=== PATIENT | male | born 1935 | race African-American/Black ===

== ENCOUNTER 2018-10-21 18:31 | Emergency (ER) | payer MEDICARE, OTHER ==
[~2018-10-21] VITALS: Ht 185.4 cm; Wt 82.1 kg
[~2018-10-21 18:31] MED LIST: ASPI81CH49 PO; CARB0.5D28 OP; FENO50TA PO; GLIP-116 PO; HYDR25TA4 PO; LISI40TA PO; NIFEDIPINE PO; PRAVASTATIN PO; TERA10CA36 PO; TRAV0.007 OP; [UNRECOGNIZED DRUG - CODE] PO
[2018-10-21] MEDS ORDERED: IBUPROFEN 400 MG TAB PO ONE (21:15)
[2018-10-21] MEDS ORDERED: HYDROcodone-ACET 7.5/325MG TAB PO ONE (21:15)
[2018-10-21 22:20] VITALS: BP 151/79
== END 2018-10-21 22:27 | disposition home or self-care (01) ==
LOC: ER 18:37
DX: S16.1XXA Strain of muscle, fascia and tendon at neck level, initial encounter (principal); S40.011A Contusion of right shoulder, initial encounter; S09.90XA Unspecified injury of head, initial encounter; I10 Essential (primary) hypertension; E11.9 Type 2 diabetes mellitus without complications; W19.XXXA Unspecified fall, initial encounter; Y93.89 Activity, other specified; Y99.8 Other external cause status; Y92.89 Other specified places as the place of occurrence of the external cause
CPT/HCPCS: 70450; 72125; 73000; 73030; 93005; 99284; L0120

== ENCOUNTER 2019-06-23 08:03 | Inpatient (IN) | payer MEDICARE, OTHER ==
[~2019-06-23] VITALS: Ht 185.4 cm; Wt 87.4 kg
[~2019-06-23 08:03] MED LIST changes: -GLIP-116 PO; +GLIP10TA9 PO; +[UNRECOGNIZED DRUG - CODE] PO; -[UNRECOGNIZED DRUG - CODE] PO
[2019-06-23] MEDS ORDERED: ASPirin 81 mg TAB PO ONE (08:15)
[2019-06-23] MEDS ORDERED: FUROSEMIDE 40 MG/4 ML VIAL IV ONE (08:15)
[2019-06-23 08:39] LABS: Basophils # (auto) 0 10 ^3/uL (0-0.2); Basophils % (auto) 0.3 % (0.0-2.0); Eosinophils # (auto) 0.1 10 ^3/uL (0-0.8); Eosinophils % (auto) 1.3 % (0.0-7.0); Hematocrit 27.8 % (41.0-53.0); Hemoglobin 9.3 g/dL (13.5-17.5); Lymphocytes # (auto) 0.7 10 ^3/uL (0.4-5.4); Lymphocytes % (auto) 11.2 % (10.0-50.0); Mean Corpuscular Hemoglobin 33.9 pg (28.0-32.0); Mean Corpuscular Hgb Conc. 33.5 g/dL (32.0-36.0); Mean Corpuscular Volume 101.4 fL (80.0-100.0); Monocytes # (auto) 0.5 10 ^3/uL (0-1.3); Monocytes % (auto) 8.6 % (0.0-12.0); Neutrophils # (auto) 4.8 10 ^3/uL (1.6-8.6); Neutrophils % (auto) 78.6 % (37.0-80.0); Nucleated Red Blood Cells % 0.1 %; Platelet Count (auto) 95 10^3/uL (140-450); Red Blood Cells 2.74 10^6/uL (4.5-5.90); Red Cell Distribution Width 15.4 % (11.8-14.3); White Blood Cell 6.1 10^3/uL (4.4-10.8)
[2019-06-23 08:57] LABS: Albumin 3.3 g/dL (3.4-5.0); Calcium 8.4 mg/dL (8.5-10.1); Magnesium 2.6 mg/dL (1.6-2.6); Potassium 4.6 mmol/L (3.5-5.1)
[2019-06-23 09:05] LABS: BUN/Creatinine Ratio 15.2; Bilirubin, Total 0.7 mg/dL (0.2-1.0); Total Protein 6.9 g/dL (6.4-8.2)
[2019-06-23] MEDS ORDERED: ALBUTEROL SULF 2.5 MG/0.5ML(0.5%) NEB SOLN HHN ONE (09:45)
[2019-06-23] MEDS ORDERED: methylPREDNISolone SOD SUCC 125 MG/2 ML VL IV ONE (09:45)
[2019-06-23] MEDS ORDERED: IPRATROPIUM BROM 0.5 MG/2.5ML INH SOL HHN ONE (09:45)
[2019-06-23] MEDS ORDERED: MORPHINE SULF INJ 2 MG/ML SYRINGE 1ML IV PRN ×2 (10:15)
[2019-06-23] MEDS ORDERED: traMADol HCL 50 MG TAB PO PRN (10:15)
[2019-06-23] MEDS ORDERED: DEXTROSE (50%) 50ML SYRG IV PRN (10:15)
[2019-06-23] MEDS ORDERED: TEMAZEPAM 15 MG CAP PO PRN (10:15)
[2019-06-23] MEDS ORDERED: ONDANSETRON HCL 4 MG/2 ML VIAL IV PRN (10:15)
[2019-06-23] MEDS ORDERED: NITROGLYCERIN 0.4 MG SL TAB SL PRN (10:15)
[2019-06-23] MEDS ORDERED: ACETAMINOPHEN 500 MG TAB PO PRN (10:15)
[2019-06-23 10:20] LABS: Urine Bacteria NONE SEEN /hpf (None Seen); Urine Blood Negative /uL (Negative); Urine Specific Gravity 1.007 (1.001-1.035); Urine WBC <1 /hpf (0 - 3)
[2019-06-23 10:30] VITALS: BP 125/72
[2019-06-23] MEDS ORDERED: FUROSEMIDE 40 MG/4 ML VIAL IV SCH (10:45)
--- NOTE | 2019-06-23 11:30 | NUR ---
Telemetry admit from [facility] admitted to Telemetry unit after SBAR received. Patient oriented to MYKEL CORRAL, primary RN, unit, room, bed, and unit policies regarding patient care and visiting hours. Patient now on continuous telemetry monitoring, tele box #18 and telemetry reading on arrival to unit is SINUS RHYTHM. Patient placed on bedside oxygen at 2lpm via nasal cannula, weighed by bedscale and encouraged to call if they need something. All questions and concerns addressed, patient verbalized understanding.
[2019-06-23] MEDS: ACCU-CHEK COMFORT CURVE STRIP VI SCH ×3 (12:03→21:58)
--- NOTE | 2019-06-23 12:04 | NUR ---
MRSA AND FLU SWABS DONE. SENT TO LAB.
[2019-06-23 12:22] VITALS: BP 120/69
[2019-06-23] MEDS: InsuLIN REG 1unit/0.01ml Soln (100units/ml) SC SCH ×3 (12:44→22:02)
[2019-06-23] MEDS: IPRATROPIUM BROM 0.5 MG/2.5ML INH SOL NEB SCH ×2 (12:54→18:09)
--- NOTE | 2019-06-23 16:00 | NUR ---
RECEIVED A FAX FROM DR. HERNANDEZ'S OFFICE, PLACED IN PATIENT'S CHART.
[2019-06-23 16:32] VITALS: BP 124/62
[2019-06-23] MEDS: FUROSEMIDE 40 MG/4 ML VIAL IV SCH (17:38)
--- NOTE | 2019-06-23 17:56 | NUR ---
POM PATIENT SAID THAT HIS NEIGHBOR WILL BRING THE LIST OF HIS HOME MEDS, WILL ENDORSE TO NIGHT NURSE.
--- NOTE | 2019-06-23 18:08 | NUR ---
MR [place] [facility] [place]ICAL REC[place]. FAX #: [phone]. TRAFFIC SIGNAL TECHNICIAN SAID THAT MEDICAL RECORDS IS CLOSED.
[2019-06-23] MEDS: ALBUTEROL SULF 2.5 MG/0.5ML(0.5%) NEB SOLN NEB PRN (18:09)
--- NOTE | 2019-06-23 18:30 | NUR ---
[place] [facility] [place], PLACED IN CHART. WILL ENDORSE TO NIGHT NURSE.
--- NOTE | 2019-06-23 19:50 | NUR ---
Opening Shift Note Assumed care of patient, awake and alert. No S/S of distress/SOB or pain. Friend olga at bedside. Instructed on POC and to call for assist PRN, will continue to monitor for changes Q1hr and PRN. bed in low position and call light within reach.
[2019-06-23 20:00] VITALS: BP 144/74
[2019-06-23 22:00] VITALS: BP 140/71
[2019-06-23] MEDS: ATORVASTATIN 20 MG TAB PO SCH (22:02)
[2019-06-23] MEDS: CARVEDILOL 3.125 MG TAB PO SCH (22:02)
--- NOTE | 2019-06-23 22:11 | NUR ---
MD sofia rounding on patient and explaining POC patient verbalized understanding. new orders received orders read back and verified by MD sofia.
[2019-06-23] MEDS ORDERED: CARB0.5D36 EACHEYE (23:26)
[2019-06-23] MEDS ORDERED: BRIM0.2S17 OP (23:26)
[2019-06-23] MEDS ORDERED: AMLO10CA33 PO (23:26)
[2019-06-23] MEDS ORDERED: FURO40TA4 PO (23:26)
[2019-06-23] MEDS ORDERED: OMEG1205 PO (23:26)
[2019-06-23] MEDS ORDERED: CARV3.1240 PO (23:26)
[2019-06-23] MEDS ORDERED: ATOR20TA50 PO (23:26)
[2019-06-23] MEDS ORDERED: TIMO0.5S67 EACHEYE (23:26)
[2019-06-23] MEDS ORDERED: LATA0.0019 EACHEYE (23:26)
[2019-06-23] MEDS ORDERED: FINA5TAB4 PO (23:26)
[2019-06-23] MEDS ORDERED: ERGO1CAP23 PO (23:26)
[2019-06-23] MEDS ORDERED: MULT-8 PO (23:26)
[2019-06-23] MEDS ORDERED: HYDR-4296 PO (23:26)
[2019-06-23] MEDS ORDERED: CALC0.25 PO (23:26)
--- NOTE | 2019-06-23 23:29 | NUR ---
MEDICATION REC UPDATED. INFORMED PATIENT OF HOSPITAL POLICY AND MEDICATION NEED TO BE TAKEN DOWN TO PHARMACY. PATIENT STATED " I WILL TELL MY NEIGHBOR TO SMOKING PIPE MAKER MY MEDICATION IN THE MORNING, DO NOT TAKE THEM" . PATIENT VERBALIZED THAT HE WILL NOT TAKE ANY HOME MEDICATIONS WHILE AT THE HOSPITAL. MEDICATIONS AT BEDSIDE IN CLOSET
[2019-06-24] MEDS: IPRATROPIUM BROM 0.5 MG/2.5ML INH SOL NEB SCH ×4 (00:09→18:48)
[2019-06-24] MEDS: ALBUTEROL SULF 2.5 MG/0.5ML(0.5%) NEB SOLN NEB PRN ×3 (00:10→11:22)
[2019-06-24] MEDS: FUROSEMIDE 40 MG/4 ML VIAL IV SCH ×2 (05:26→17:52)
[2019-06-24 05:44] LABS: Basophils # (auto) 0 10 ^3/uL (0-0.2); Basophils % (auto) 0.1 % (0.0-2.0); Eosinophils # (auto) 0 10 ^3/uL (0-0.8); Hematocrit 24.6 % (41.0-53.0); Hemoglobin 8.6 g/dL (13.5-17.5); Lymphocytes # (auto) 0.3 10 ^3/uL (0.4-5.4); Lymphocytes % (auto) 4.9 % (10.0-50.0); Mean Corpuscular Hemoglobin 34.6 pg (28.0-32.0); Mean Corpuscular Hgb Conc. 34.9 g/dL (32.0-36.0); Mean Corpuscular Volume 99.1 fL (80.0-100.0); Monocytes # (auto) 0.2 10 ^3/uL (0-1.3); Monocytes % (auto) 4.1 % (0.0-12.0); Neutrophils # (auto) 4.6 10 ^3/uL (1.6-8.6); Neutrophils % (auto) 90.9 % (37.0-80.0); Platelet Count (auto) 87 10^3/uL (140-450); Red Blood Cells 2.48 10^6/uL (4.5-5.90); Red Cell Distribution Width 14.6 % (11.8-14.3); White Blood Cell 5.1 10^3/uL (4.4-10.8)
[2019-06-24 05:58] LABS: Albumin 2.8 g/dL (3.4-5.0); Calcium 8.4 mg/dL (8.5-10.1); Potassium 4.6 mmol/L (3.5-5.1)
[2019-06-24 06:02] LABS: Bilirubin, Total 0.5 mg/dL (0.2-1.0); Total Protein 6.2 g/dL (6.4-8.2)
[2019-06-24 06:15] LABS: BUN/Creatinine Ratio 16.9
[2019-06-24 06:17] VITALS: BP 123/66
--- NOTE | 2019-06-24 06:21 | NUR ---
spoke with md zimmerman sbar report given and reported critical bun 83. also notified of nephrology consult pending for CKD. no new orders received orders read back and verified by md zimmerman.
[2019-06-24] MEDS: InsuLIN REG 1unit/0.01ml Soln (100units/ml) SC SCH ×4 (06:29→21:57)
[2019-06-24] MEDS: ACCU-CHEK COMFORT CURVE STRIP VI SCH ×4 (06:29→21:56)
--- NOTE | 2019-06-24 06:37 | NUR ---
patient rounds patient is in bed sleeping bilateral chest rise and fall rr 15. shows no signs of distress, sob or pain
--- NOTE | 2019-06-24 07:21 | NUR ---
report given to dayshift rn pty denies sob distress or pain
--- NOTE | 2019-06-24 07:45 | NUR ---
Patient in bed, awake, oriented x4, on O2 at 2 LPM. No acute distress noted. Patient stated he can get up and go to the bathroom with no assist. Urinal at bedside with 500 ml of clear, yellowish urine noted.
--- NOTE | 2019-06-24 07:50 | NUR ---
About 500 ml of clear, yellowish urine emptied from the urinal.
[2019-06-24 09:00] VITALS: BP 124/65
--- NOTE | 2019-06-24 09:50 | NUR ---
Patient stated that Dr. Teran (for Nephrology) came over and told him that he cannot have the angiogram on Wednesday because of his kidneys. Will clarify with Dr. Teran and Dr. Quiles (for Cardiology).
[2019-06-24] MEDS ORDERED: ENALAPRIL MALEATE 2.5 MG TAB PO SCH (10:00)
[2019-06-24] MEDS: NITROGLYCERIN 0.2MG/HR TOPICAL PATCH TD SCH (10:00)
[2019-06-24] MEDS ORDERED: ENOXAPARIN SOD 30 MG/0.3 ML SYRINGE SC SCH (10:00)
[2019-06-24] MEDS ORDERED: ASPirin 81 mg TAB PO SCH (10:00)
[2019-06-24] MEDS: CARVEDILOL 3.125 MG TAB PO SCH ×2 (10:30→21:47)
--- NOTE | 2019-06-24 10:30 | NUR ---
Patient is uncomfortable taking the Aspirin, Nitroglycerin patch and Lovenox SC. Explained the risks and benefits. Patient denies chest pain. Patient said he does not take Aspirin or blood thinners at home. Patient refused the Aspirin, Nitroglycerin patch and Lovenox. Waiting for the hospitalist to see the patient.
[2019-06-24] MEDS: hydrALAZINE HCL 25 MG TAB PO SCH ×2 (10:31→21:46)
--- NOTE | 2019-06-24 12:28 | NUR ---
Krista Busch called Kita Patel on the phone. Dr. Ferrell said Dr. Cruz is the primary doctor, Kita Patel is coming to see the patient.
--- NOTE | 2019-06-24 12:32 | NUR ---
Kita Patel at bedside. Patient said Dr. Cruz is off his case. Dr. Cruz explained patient has to go to [facility]. Patient refused to be transferred to [facility]. Patient insisted Dr. Quiles is the one on his case now.
--- NOTE | 2019-06-24 12:40 | NUR ---
Patient refused Kita Patel to be his Sales Service Representative and hospitalist. Patient stated Dr. Quiles is already on his case (Cardiology) and Dr. Teran is his Flower Pot Press Operator. Informed the patient Dr. Cruz is calling another hospitalist who will see him.
--- NOTE | 2019-06-24 12:47 | NUR ---
Kita Patel said he had the patient at [facility] for seven days but patient refused the plan of care. Dr. Cruz said he already talked to Apollo Busch. Dr. Curz to transfer the care to Apollo Busch.
--- NOTE | 2019-06-24 12:53 | NUR ---
Krista Busch at bedside. spoke with the patient. Dr. Ferrell read the notes of Dr. Teran for Nephrology and his recommendations regarding changes in medications and the high risk of contrast-induced nephropathy if patient proceeds with the planned angiogram on Wednesday. Patient requested to have his eyedrops to be resumed. Dr. Ferrell to put in new orders. MD ordered to resume the eye drops administration.
--- NOTE | 2019-06-24 12:55 | NUR ---
Krista Busch made aware patient refused Aspirin, Lovenox and Nitroglycerin patch.
--- NOTE | 2019-06-24 12:55 | NUR ---
Krista Busch ordered CBC, CMP for three consecutive days.
[2019-06-24 13:00] VITALS: BP 134/68
--- NOTE | 2019-06-24 14:05 | NUR ---
Nutrition Assessment Notes Please refer to link for full assessment notes. Est energy needs: 3861-4644 kcals (20-23 kcal/kgBW) d/t age Est protein needs: 94-103 gms/day (1.0-1.1 gm/kgBW) d/t age Will continue to monitor and reassess prn. Addendum: 06/24/19 at [address] Amended: Links added.
[2019-06-24 17:00] VITALS: BP 135/68
--- NOTE | 2019-06-24 17:10 | NUR ---
Received a call from Microbiology that patient is MRSA Nares (+).
--- NOTE | 2019-06-24 17:20 | NUR ---
Carboxymethylcel 0.5% eye drops administered for dry eyes as needed. Addendum: 06/24/19 at 1811 by Charity Parker RN AT 1820 Addendum: 06/24/19 at 1812 by Charity Parker RN WRONG TIME
--- NOTE | 2019-06-24 17:30 | NUR ---
Explained to patient that he's MRSA Nares (+), that he will be on isolation precautions.
[2019-06-24] MEDS: CARBOXYMETHYLCELLULOSE 0.5% EACHEYE PRN (18:08)
--- NOTE | 2019-06-24 18:08 | NUR ---
Carboxymethylcel 0.5% eye drops administered for dry eyes PRN.
--- NOTE | 2019-06-24 18:30 | NUR ---
Daughter (from [place]) called.
--- NOTE | 2019-06-24 18:38 | NUR ---
Paged Hospitalist telesales professional.
--- NOTE | 2019-06-24 18:42 | NUR ---
Hospitalist brand sales consultant Michel Gutierrez called back. Michel made aware patient is MRSA Nares (+). Michel ordered isolation precautions for MRSA and Bactroban 2% ointment BID.
--- NOTE | 2019-06-24 19:42 | NUR ---
Opening Shift Note Assumed care of patient, awake and alert. No S/S of distress/SOB or pain. Is poke with daughter michelle who provided password. updated daughter on plan of care. Instructed patient on POC and to call for assist PRN, will continue to monitor for changes Q1hr and PRN. bed in low position and call light within reach. bed in low position call light within reach.
[2019-06-24 20:52] VITALS: BP 149/70
[2019-06-24] MEDS: ATORVASTATIN 20 MG TAB PO SCH (21:46)
[2019-06-24] MEDS: LATANOPROST 0.005% EACHEYE SCH (21:48)
[2019-06-24] MEDS: BRIMONIDINE 0.2% EACHEYE SCH (21:48)
[2019-06-24] MEDS: MUPIROCIN 2% OINT 15gm or 22gm EACHNOSTRI SCH ×2 (21:48→22:47)
[2019-06-24] MEDS: TIMOLOL 0.5% LEFTEYE SCH (21:48)
--- NOTE | 2019-06-24 22:42 | NUR ---
Bactroban medication was not available during scheduled time as it was delivered by pharmacy to a different unit. Medication now available and verified will now administer per md orders.
[2019-06-25] VITALS (7 sets, daily range): BP systolic 131–167; BP diastolic 74–83
[2019-06-25] MEDS: IPRATROPIUM BROM 0.5 MG/2.5ML INH SOL NEB SCH ×4 (00:17→18:12)
[2019-06-25] MEDS: FUROSEMIDE 40 MG/4 ML VIAL IV SCH ×2 (05:19→17:47)
[2019-06-25 06:34] LABS: Basophils # (auto) 0 10 ^3/uL (0-0.2); Basophils % (auto) 0.1 % (0.0-2.0); Eosinophils # (auto) 0 10 ^3/uL (0-0.8); Eosinophils % (auto) 0.4 % (0.0-7.0); Hematocrit 27.4 % (41.0-53.0); Hemoglobin 9.2 g/dL (13.5-17.5); Lymphocytes # (auto) 0.6 10 ^3/uL (0.4-5.4); Lymphocytes % (auto) 12.6 % (10.0-50.0); Mean Corpuscular Hemoglobin 33.6 pg (28.0-32.0); Mean Corpuscular Hgb Conc. 33.5 g/dL (32.0-36.0); Mean Corpuscular Volume 100.2 fL (80.0-100.0); Monocytes # (auto) 0.4 10 ^3/uL (0-1.3); Monocytes % (auto) 9.2 % (0.0-12.0); Neutrophils # (auto) 3.7 10 ^3/uL (1.6-8.6); Neutrophils % (auto) 77.7 % (37.0-80.0); Platelet Count (auto) 97 10^3/uL (140-450); Red Blood Cells 2.73 10^6/uL (4.5-5.90); Red Cell Distribution Width 14.7 % (11.8-14.3); White Blood Cell 4.8 10^3/uL (4.4-10.8)
[2019-06-25 06:53] LABS: Calcium 8.8 mg/dL (8.5-10.1)
[2019-06-25 06:56] LABS: BUN/Creatinine Ratio 17.3
[2019-06-25] MEDS: ACCU-CHEK COMFORT CURVE STRIP VI SCH ×4 (06:58→22:13)
[2019-06-25] MEDS: InsuLIN REG 1unit/0.01ml Soln (100units/ml) SC SCH ×4 (06:58→22:15)
[2019-06-25 06:59] LABS: Bilirubin, Total 0.6 mg/dL (0.2-1.0); Total Protein 6.4 g/dL (6.4-8.2)
--- NOTE | 2019-06-25 07:20 | NUR ---
report given to dayshift rn. patient denies sob distress or pain
[2019-06-25] MEDS: ALBUTEROL SULF 2.5 MG/0.5ML(0.5%) NEB SOLN NEB PRN (08:11)
--- NOTE | 2019-06-25 09:50 | NUR ---
Krista Busch at bedside. Patient refused the angiogram, stated that it's high risk for his kidneys as explained by Dr. Teran to him yesterday.
--- NOTE | 2019-06-25 09:51 | NUR ---
Krista Busch made aware patient has elevated blood pressure >160. MD to put in anti-hypertensive medication PRN for elevated BP.
[2019-06-25] MEDS ORDERED: LISINOPRIL 20 MG TAB PO SCH (10:00)
--- NOTE | 2019-06-25 10:29 | NUR ---
Patient refused to have the angiogram done. Patient stated Dr. Teran came over to see him yesterday and explained to him that the angiogram is high risk for his kidneys. Charge Nurse Johanny is aware. Krista Busch is aware. Crossed out and tear the signed consent forms for angiogram in front of the patient.
--- NOTE | 2019-06-25 11:45 | NUR ---
T = 97.9 F, BP = 156/83, Heart rate = 71, RR = 18, O2 Sat = 97%.
[2019-06-25] MEDS: hydrALAZINE HCL 25 MG TAB PO SCH ×2 (11:52→22:17)
[2019-06-25] MEDS: NITROGLYCERIN 0.2MG/HR TOPICAL PATCH TD SCH (11:52)
[2019-06-25] MEDS: CARVEDILOL 3.125 MG TAB PO SCH ×2 (11:54→22:18)
[2019-06-25] MEDS: MUPIROCIN 2% OINT 15gm or 22gm EACHNOSTRI SCH ×2 (11:55→22:15)
[2019-06-25] MEDS: TIMOLOL 0.5% LEFTEYE SCH ×2 (11:56→22:16)
[2019-06-25] MEDS: BRIMONIDINE 0.2% EACHEYE SCH ×2 (11:57→22:16)
[2019-06-25] MEDS: CARBOXYMETHYLCELLULOSE 0.5% EACHEYE PRN ×2 (12:04→15:41)
--- NOTE | 2019-06-25 12:04 | NUR ---
Carboxymethylcel eye drops administered as ordered PRN for dry eyes.
--- NOTE | 2019-06-25 12:57 | NUR ---
Respiratory note: PT SLEEPING AND DID NOT WANT TO DO SCHEDULED MED NEB. IN NO DISTRESS. INFORMED RN.
--- NOTE | 2019-06-25 14:20 | NUR ---
Received a call back from daughter Saranya that he just got off the phone with his father (patient) and she does not want Kita Patel to be on the case. Explained to Saranya that Dr. Cruz is aware since yesterday that the patient does not want him to be his attending doctor and Report Developer. Krisat Busch is the patient's attending hospitalist. Addendum: 06/25/19 at 1852 by Charity Parker RN she just got off
--- NOTE | 2019-06-25 15:07 | NUR ---
Paged Nona Sidhu Waiting for MD to call back.
--- NOTE | 2019-06-25 19:42 | NUR ---
Opening Shift Note Assumed care of patient, awake and alert. No S/S of distress/SOB or pain. Instructed on POC and to call for assist PRN, will continue to monitor for changes Q1hr and PRN. bed in low position call light within reach.
[2019-06-25] MEDS: cloNIDine HCL 0.1 MG TAB PO PRN (20:06)
[2019-06-25] MEDS: LATANOPROST 0.005% EACHEYE SCH (22:16)
[2019-06-25] MEDS: ATORVASTATIN 20 MG TAB PO SCH (22:17)
--- NOTE | 2019-06-25 22:18 | NUR ---
patient informed of NPO status at midnight. patient verbalized he refuses procedure scheduled 06/26/19 patient also stated " my kidney doctor said not to have it." per dayshift rn MD myers aware of patient refusal. Kb was called to notify him of patient request, awaiting call back.
[2019-06-26] MEDS: IPRATROPIUM BROM 0.5 MG/2.5ML INH SOL NEB SCH ×5 (00:05→23:51)
--- NOTE | 2019-06-26 00:49 | NUR ---
HEART RATE PATIENT HEART RATE WAS IN THE 60'S -70'S RUNNING SINUS RHYTHM. HE WAS GIVEN MEDICATIONS (SEE EMAR) FOR B/P AND HEART RATE DURING SCHEDULED TIME. PATIENT HEART RATE IS NOW IN THE LOW 50'S. . PATIENT IS ASYMPTOMATIC . REPORTING NO DISTRESS SOB OR PAIN. PATIENT VS 126/74, HR 53, RR 18, 02 SATURATION ROOM AIR 100%, EKG PERFORMED AND PLACED IN CHART. Kody COON CALLED DUE TO COMMUNICATION ORDER BY MD MARTIN TO CALL Kody COON FOR CARDIAC QUESTIONS. MESSAGE LEFT TO Kody GRIFFIN ANSWERING MACHINE , TO NOTIFY MD OF CHANGE IN PATIENT HEART RATE. WILL CONTINUE TO MONITOR PATIENT.
--- NOTE | 2019-06-26 01:09 | NUR ---
PATIENT ASSESSED PATIENT REASSESSED PATIENT HEART RATE 62BPM RUNNING SR. DENIES SOB/DISTRESS OR PAIN.
--- NOTE | 2019-06-26 02:00 | NUR ---
patient reassessed heart rate 54bpm denies sob,distress or pain. urine output 600ml clear yellow. bed in low position and call light within reach.
--- NOTE | 2019-06-26 03:50 | NUR ---
patient is in bed sleeping bilateral chest rise and fall, rr 16, shows no signs of distress sob/ or pain. heart rate 71bpm running SR.
--- NOTE | 2019-06-26 03:56 | NUR ---
blanket provided to patient per patient request. urinal 300 ml clear yellow urine.
[2019-06-26 05:00] VITALS: BP 140/71
[2019-06-26 05:55] LABS: Basophils # (auto) 0 10 ^3/uL (0-0.2); Basophils % (auto) 0.4 % (0.0-2.0); Eosinophils # (auto) 0.1 10 ^3/uL (0-0.8); Hemoglobin 8.5 g/dL (13.5-17.5); Lymphocytes # (auto) 0.5 10 ^3/uL (0.4-5.4); Neutrophils # (auto) 1.1 10 ^3/uL (1.6-8.6)
[2019-06-26] MEDS: FUROSEMIDE 40 MG/4 ML VIAL IV SCH ×2 (05:55→18:05)
[2019-06-26 05:59] LABS: Eosinophils % (auto) 2.8 % (0.0-7.0); Hematocrit 24.5 % (41.0-53.0); Lymphocytes % (auto) 25.2 % (10.0-50.0); Mean Corpuscular Hemoglobin 34.8 pg (28.0-32.0); Mean Corpuscular Hgb Conc. 34.7 g/dL (32.0-36.0); Mean Corpuscular Volume 100.1 fL (80.0-100.0); Monocytes # (auto) 0.3 10 ^3/uL (0-1.3); Monocytes % (auto) 16.7 % (0.0-12.0); Neutrophils % (auto) 54.9 % (37.0-80.0); Nucleated Red Blood Cells % 0.1 %; Platelet Count (auto) 87 10^3/uL (140-450); Red Blood Cells 2.45 10^6/uL (4.5-5.90); Red Cell Distribution Width 14.7 % (11.8-14.3)
[2019-06-26 06:19] LABS: Potassium 3.7 mmol/L (3.5-5.1)
[2019-06-26] MEDS: InsuLIN REG 1unit/0.01ml Soln (100units/ml) SC SCH ×4 (06:21→22:58)
[2019-06-26] MEDS: ACCU-CHEK COMFORT CURVE STRIP VI SCH ×4 (06:21→22:55)
[2019-06-26] MEDS: ALBUTEROL SULF 2.5 MG/0.5ML(0.5%) NEB SOLN NEB PRN ×4 (06:22→23:51)
[2019-06-26 06:25] LABS: Albumin 2.7 g/dL (3.4-5.0); BUN/Creatinine Ratio 17.9; Bilirubin, Total 0.8 mg/dL (0.2-1.0); Calcium 8.3 mg/dL (8.5-10.1); Total Protein 5.9 g/dL (6.4-8.2)
--- NOTE | 2019-06-26 06:36 | NUR ---
MD LOPEZ NOTIFIED OF CRITICAL BUN OF 86. SBAR GIVEN. NO NEW ORDERS RECEIVED.
--- NOTE | 2019-06-26 07:25 | NUR ---
report given to dayshift rn patient denies sob distress or pain. bed in low position and call light within reach
--- NOTE | 2019-06-26 07:25 | NUR ---
report given to dayshift rn patient denies sob distress or pain. bed in low position and call light within reach. informed rn of patient heart rate in the low 50's.
--- NOTE | 2019-06-26 07:30 | NUR ---
Dr. Teran (for Nephrology) came over to see the patient.
[2019-06-26 08:41] VITALS: BP 140/71
[2019-06-26 09:00] VITALS: BP 158/72
--- NOTE | 2019-06-26 09:00 | NUR ---
BP = 155/76, Heart rate = 63, O2 Sat = 99% to 100% on Room air.
--- NOTE | 2019-06-26 09:10 | NUR ---
Cammy from [employer] called. Cammy made aware patient refused angiogram because Dr. Teran recommends patient not to have angiogram because of risks to patient's kidneys, patient said Dr. Teran told him that he will talk to Dr. Quiles about it.
[2019-06-26] MEDS: LISINOPRIL 20 MG TAB PO SCH ×2 (09:11→10:52)
--- NOTE | 2019-06-26 10:00 | NUR ---
About 800 ml of clear, yellowish urine emptied from the urinal.
[2019-06-26] MEDS: LACTULOSE 20Gm/30ML SOLN PO PRN (10:49)
--- NOTE | 2019-06-26 10:49 | NUR ---
Lactulose PO given for constipation.
[2019-06-26] MEDS: hydrALAZINE HCL 25 MG TAB PO SCH ×2 (10:50→22:32)
[2019-06-26] MEDS: CARVEDILOL 3.125 MG TAB PO SCH ×2 (10:51→22:32)
[2019-06-26] MEDS: NITROGLYCERIN 0.2MG/HR TOPICAL PATCH TD SCH (10:53)
[2019-06-26] MEDS: MUPIROCIN 2% OINT 15gm or 22gm EACHNOSTRI SCH ×2 (10:55→22:34)
[2019-06-26] MEDS: BRIMONIDINE 0.2% EACHEYE SCH ×2 (10:55→22:33)
[2019-06-26] MEDS: TIMOLOL 0.5% LEFTEYE SCH ×2 (10:56→22:34)
[2019-06-26] MEDS: CARBOXYMETHYLCELLULOSE 0.5% EACHEYE PRN ×2 (10:56→22:35)
--- NOTE | 2019-06-26 10:56 | NUR ---
Carboxymethylcel eye drops administered PRN for dry eyes.
--- NOTE | 2019-06-26 11:05 | NUR ---
Krista Busch at bedside. ordered Physical Therapy and Cardiology Consult with Nona Sidhu
--- NOTE | 2019-06-26 11:58 | NUR ---
About 200 ml of clear, yellowish urine emptied form the urinal.
--- NOTE | 2019-06-26 12:00 | NUR ---
TAYLER Pate came over for Physical Therapy. Patient is ambulatory with steady gait noted. Patient stated he has a cane at home but haven't use it for a long time.
[2019-06-26 13:00] VITALS: BP 136/73
--- NOTE | 2019-06-26 13:30 | NUR ---
Received a call from Thermometer Tester Sunni regarding patient's V#. Sunni is aware that patient refused Kita Patel to be his Transportation Logistics Internship and attending doctor.
--- NOTE | 2019-06-26 14:40 | NUR ---
Received medical records from [facility] as requested via Fax which includes one page of Recovery Flow Record form which belong to another patient at [facility]. Charge Nurse Carmelina made aware. Recovery Flow Record form which belongs to another patient at [facility] shredded.
--- NOTE | 2019-06-26 16:00 | NUR ---
Patient stated he had two bowel movements today.
--- NOTE | 2019-06-26 16:19 | NUR ---
ALEXUS Benoit came over, made aware that patient has a new Cardiology Consult with Dr. Quiles. Kaycee read the notes of Dr. Teran (for Nephrology). Kaycee made aware patient refused Kita Patel to be his Sleep Technologist and attending doctor, patient had signed consent forms for Left Heart Cath but decided to withdraw his consent on the weekend. Patient stated that he decided to not have the angiogram done today because Dr. Teran explained to him last weekend that angiogram is high risk for his kidneys. Patient said Dr. Teran told him that he will discuss it with Dr. Quiles. Kaycee to inform Dr. Quiles.
--- NOTE | 2019-06-26 18:09 | NUR ---
Patient stated Nona Sidhu came over and talked to him (for Cardiology Consult).
--- NOTE | 2019-06-26 19:25 | NUR ---
Opening shift note: Report received and assumed care of patient, patient is awake, alert, and oriented X4. Patient is on room air with no signs or symptoms of SOB or distress, patient denies Chest pain on initial assessment. Patient is on tele box #18 running sinus at [address] depression. Bed is low, locked, with two side rails raised, and call graff is within reach. Instructed on POC and to call for assist PRN, will continue to monitor for changes Q1hr and PRN.
[2019-06-26 20:00] VITALS: BP 135/72
[2019-06-26 22:00] VITALS: BP 135/75
[2019-06-26] MEDS: ATORVASTATIN 20 MG TAB PO SCH (22:32)
[2019-06-26] MEDS: LATANOPROST 0.005% EACHEYE SCH (22:33)
[2019-06-27 05:00] VITALS: BP 150/81
[2019-06-27] MEDS: ACCU-CHEK COMFORT CURVE STRIP VI SCH ×4 (06:16→21:40)
[2019-06-27] MEDS: InsuLIN REG 1unit/0.01ml Soln (100units/ml) SC SCH ×4 (06:17→21:54)
[2019-06-27 06:50] LABS: Basophils # (auto) 0 10 ^3/uL (0-0.2); Basophils % (auto) 0.7 % (0.0-2.0); Eosinophils # (auto) 0.1 10 ^3/uL (0-0.8); Lymphocytes # (auto) 0.7 10 ^3/uL (0.4-5.4); Mean Corpuscular Hgb Conc. 34.4 g/dL (32.0-36.0); Monocytes % (auto) 17.1 % (0.0-12.0); Neutrophils # (auto) 0.9 10 ^3/uL (1.6-8.6); Nucleated Red Blood Cells % 0.1 %
[2019-06-27 06:56] LABS: Eosinophils % (auto) 4.5 % (0.0-7.0); Hematocrit 25.2 % (41.0-53.0); Hemoglobin 8.7 g/dL (13.5-17.5); Lymphocytes % (auto) 31.8 % (10.0-50.0); Mean Corpuscular Hemoglobin 34.2 pg (28.0-32.0); Mean Corpuscular Volume 99.5 fL (80.0-100.0); Monocytes # (auto) 0.4 10 ^3/uL (0-1.3); Neutrophils % (auto) 45.9 % (37.0-80.0); Platelet Count (auto) 93 10^3/uL (140-450); Red Blood Cells 2.53 10^6/uL (4.5-5.90); Red Cell Distribution Width 14.1 % (11.8-14.3); White Blood Cell 2.1 10^3/uL (4.4-10.8)
[2019-06-27 07:10] LABS: Calcium 8.1 mg/dL (8.5-10.1); Potassium 3.5 mmol/L (3.5-5.1)
[2019-06-27 07:16] LABS: Albumin 2.8 g/dL (3.4-5.0); BUN/Creatinine Ratio 16.7; Bilirubin, Total 0.5 mg/dL (0.2-1.0)
[2019-06-27] MEDS: IPRATROPIUM BROM 0.5 MG/2.5ML INH SOL NEB SCH ×3 (07:25→19:07)
[2019-06-27 09:00] VITALS: BP 149/83
[2019-06-27] MEDS: TIMOLOL 0.5% LEFTEYE SCH ×2 (10:00→21:39)
[2019-06-27] MEDS: MUPIROCIN 2% OINT 15gm or 22gm EACHNOSTRI SCH ×2 (10:00→21:39)
[2019-06-27] MEDS: FUROSEMIDE 40 MG TAB PO SCH (10:00)
[2019-06-27] MEDS: LISINOPRIL 20 MG TAB PO SCH (10:00)
[2019-06-27] MEDS: BRIMONIDINE 0.2% EACHEYE SCH ×2 (10:00→21:39)
[2019-06-27] MEDS: NITROGLYCERIN 0.2MG/HR TOPICAL PATCH TD SCH (10:34)
[2019-06-27] MEDS: CARVEDILOL 3.125 MG TAB PO SCH ×2 (10:35→21:40)
[2019-06-27] MEDS: hydrALAZINE HCL 25 MG TAB PO SCH ×2 (10:36→21:40)
--- NOTE | 2019-06-27 12:38 | NUR ---
NEXT OF [facility] CARLOS CALLS, GIVES PASSWORD. UPDATED. ASKS IF PT IS CANDIDATE FOR HOSPICE. STATES SHE HAS REQUESTED HIM TO MOVE CLOSE TO HER SO SHE CAN LOOK AFTER HIM AND HE HAS DECLINED.
[2019-06-27 13:00] VITALS: BP 140/72
--- NOTE | 2019-06-27 14:12 | NUR ---
PT CONFIRMS THAT HE IS DECLINING DIALYSIS. 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 HE PRESENTS HAVING A BROAD UNDERSTANDING. HE EXPRESSES THE WISH TO REMAIN INDEPENDENT AT HOME LONG POSSIBLE. HE STATES CONCERNS ABOUT RETURNING HOME TO PAY BILLS AND CARE FOR HIS HOME. I AM UNABLE TO DETERMINE IF HE IS ACTUALLY CAPABLE OF THAT AT THIS TIME. HAS BRIEF TEARFUL MOMENTS THAT RESOLVE QUICKLY.
[2019-06-27 17:00] VITALS: BP 157/86
--- NOTE | 2019-06-27 18:26 | NUR ---
REZA DOCTOR OF RADIOLOGY NOTIFIES ME OF PLANS TO TRANSFER TO HIGHER LEVEL OF CARE FOR POSSIBLE TAVAR. INSTRUCTED TO CONTACT WIRE PHOTO OPERATOR NEWS TO ARRANGE NOW. BOAT OUTBOARD ENGINE MECHANIC SARAH HARRIS CONTACTED. PROCESS INITIATED.
--- NOTE | 2019-06-27 19:03 | NUR ---
DOCUMENTS FAXED TO BOTH [place] AND [facility] REQUESTED BY SARAH HARRIS.
[2019-06-27] MEDS: ALBUTEROL SULF 2.5 MG/0.5ML(0.5%) NEB SOLN NEB PRN (19:07)
--- NOTE | 2019-06-27 19:30 | NUR ---
Opening Shift Note Assumed care of patient, awake and alert. No S/S of distress/SOB or pain. Insructed on POC and to callfor assist PRN, will continue to monitor for changes Q1hr and PRN. Fall and safety precautions in place. Call light within reach.
[2019-06-27] MEDS: LATANOPROST 0.005% EACHEYE SCH ×2 (21:39→21:56)
[2019-06-27] MEDS: ATORVASTATIN 20 MG TAB PO SCH (21:40)
[2019-06-27 22:07] VITALS: BP 135/75
[2019-06-28] MEDS: IPRATROPIUM BROM 0.5 MG/2.5ML INH SOL NEB SCH ×4 (00:36→18:52)
[2019-06-28] MEDS: ALBUTEROL SULF 2.5 MG/0.5ML(0.5%) NEB SOLN NEB PRN ×2 (00:36→18:52)
[2019-06-28 05:57] VITALS: BP 157/84
[2019-06-28] MEDS: InsuLIN REG 1unit/0.01ml Soln (100units/ml) SC SCH ×4 (06:19→22:25)
[2019-06-28] MEDS: ACCU-CHEK COMFORT CURVE STRIP VI SCH ×4 (06:19→22:29)
--- NOTE | 2019-06-28 09:09 | NUR ---
I called [facility] Transfer [facility] [phone] and spoke with Erik, he said they are still waiting for a bed-he will call when one becomes available.
[2019-06-28 09:35] VITALS: BP 166/85
[2019-06-28] MEDS: BRIMONIDINE 0.2% EACHEYE SCH ×2 (10:00→22:29)
[2019-06-28] MEDS: TIMOLOL 0.5% LEFTEYE SCH ×2 (10:00→22:29)
[2019-06-28] MEDS: hydrALAZINE HCL 25 MG TAB PO SCH ×2 (10:00→22:07)
[2019-06-28] MEDS: LISINOPRIL 20 MG TAB PO SCH (10:00)
[2019-06-28] MEDS: MUPIROCIN 2% OINT 15gm or 22gm EACHNOSTRI SCH ×2 (10:00→22:26)
[2019-06-28] MEDS: FUROSEMIDE 40 MG TAB PO SCH (10:30)
[2019-06-28] MEDS: NITROGLYCERIN 0.2MG/HR TOPICAL PATCH TD SCH (10:30)
[2019-06-28] MEDS: CARVEDILOL 3.125 MG TAB PO SCH ×2 (10:30→22:07)
--- NOTE | 2019-06-28 12:57 | NUR ---
I called [facility] ([phone]) and spoke with Vic, placed them on will call pending transfer to [facility]. Medicare PCS form faxed to [facility]. I called [facility] Transfer [facility] and spoke with Erik, no beds available yet-he will call when one becomes available.
[2019-06-28 13:00] VITALS: BP 191/92
[2019-06-28] MEDS: LACTULOSE 20Gm/30ML SOLN PO PRN (14:00)
--- NOTE | 2019-06-28 15:34 | NUR ---
assessment Patient is a 84 year old male who is alert and oriented. Patients cognitive abilities are intact. Prior to admission patient lived home alone and functioned independently. Patient informed me he is able to care for his own ADLs. Per patient he has a cane for home use. Per patient he uses a PCP at [facility]. Patient is aware of his consult for transfer and for hospice. Patient is refusing hospice. Per Patient he wants and agrees to transfer. Rosemary disease case manager has been notified. I informed patient he has a right to speak to a social science manager regarding all care. I informed patient he has a right to participate in any and all discharge planning. Patient does not have a POA and advanced directive. I have offered patient information on POA and advanced directives. I informed the patient the advantages and benefits of having an Advanced Directive. Patient verbalized understanding and agreed to discharge plan. Addendum: 06/28/19 at 1552 by Mary MARLOW Amended: Links added.
[2019-06-28 16:51] VITALS: BP 184/102
--- NOTE | 2019-06-28 18:57 | NUR ---
C/O BLADDER PAIN. REPORTS UNABLE TO VOID BUT SMALL AMOUNTS AT A TIME. BLADDER SCAN USED. CALCULATES BETWEEN 720CC TO 740CC RESIDUAL VOLUME AFTER VOIDING 100CC AT A TIME. REPORTS PAIN INCREASING. PAGE TO DR. HAILEY ROSAS.
--- NOTE | 2019-06-28 19:15 | NUR ---
contact made with hospitalist electronic publications specialist re: urine retention. orders paz cath. Dr. Teran returns call. also T/O for indwelling paz cath. asks to place smaller gauge and leave in place when transferred.
--- NOTE | 2019-06-28 19:40 | NUR ---
Opening Shift Note Assumed care of patient, awake and alert. No S/S of distress/SOB or pain. paz catheter in place patient denies discomfort.Instructed on POC and to call for assist PRN, will continue to monitor for changes Q1hr and PRN.
--- NOTE | 2019-06-28 20:25 | NUR ---
TOLERATES GOSS INSERTION WITH COUCHING OF BREATHING. C/O PAIN DURING INSERTION. NO RESISTANCE MET. FULLY INFLATED BALLOON LEG ANCHOR ATTACHED. DRAINS 500CC INITIALLY CONTINUES TO DRAIN AT STEADY RATE. STATES RELIEF OF PAIN.
--- NOTE | 2019-06-28 20:29 | NUR ---
STATES HAS HAD 3 BM THIS AFTERNOON AFTER LACTALOSE TAKEN.
--- NOTE | 2019-06-28 21:30 | NUR ---
call from [place] coordinator marcelino that bed [place] available at [place] per coordinator patient will be going to unit 7[address] room 8 bed 1, no nurse assigned. .
[2019-06-28 21:35] VITALS: BP 157/77
--- NOTE | 2019-06-28 21:58 | NUR ---
spoke with amr mary worley will be here in 2hrs for transportation.
[2019-06-28] MEDS: ATORVASTATIN 20 MG TAB PO SCH (22:07)
[2019-06-28] MEDS: LATANOPROST 0.005% EACHEYE SCH (22:29)
--- NOTE | 2019-06-28 22:49 | NUR ---
patient medication picked up. patient signed form.
--- NOTE | 2019-06-28 23:06 | NUR ---
sbar report given to morris philip from [facility]. all questions and concerns answered.
--- NOTE | 2019-06-28 23:30 | NUR ---
spoke with TRAFFIC REPORTER ozzy informed him of patient blood pressure 185/90 heart rate 77. rechecked b/p 185/90. informed art objects repairer patient has clonidine prn. informed art objects repairer amr was here to cook pickled meat patient for transfer to [facility]. per art objects repairer given prn clonidine and okay to transfer patient. orders read back and verified.
[2019-06-28] MEDS: cloNIDine HCL 0.1 MG TAB PO PRN (23:35)
--- NOTE | 2019-06-28 23:50 | NUR ---
patient discharged and will be transferred to [facility] to room 8 bed 1, to lisa caceres . sbar report was given to rn through telephone. patient discharge instructions given. all forms signed. patient verbalized understanding transfer paperwork signed and filled by cupola charger imelda. Paperwork checked by two rn. Id bands removed. telebox sent to [facility]. telemonitor called. all patients belongings were given to patient. patient denies distress sob or pain.
--- NOTE | 2019-06-28 23:50 | NUR ---
patient discharged and will be transferred to [facility] to room 8 bed 1, to lisa caceres . sbar report was given to rn through telephone. patient discharge instructions given. all forms signed. patient verbalized understanding transfer paperwork signed and filled by creative intern imelda. Paperwork checked by two rn. Id bands removed. telebox sent to [facility]. telemonitor called.
--- NOTE | 2019-06-28 23:53 | NUR ---
unable to leave a message to alyssa martinez times 3x of transfer, called number [phone]. mailbox was full. will attempt later Addendum: 06/29/19 at 0108 by WILFRIDO HALL RN RN spoke with alyssa martinez and notified her of patient transfer and patient room number room 8 bed 1 provided her with morris gonzalez at [place] phone number.
--- NOTE | 2019-06-28 23:57 | NUR ---
notified morris from [facility] that patient is being transferred
== END 2019-06-28 23:47 | disposition short-term general hospital (02) | DRG 306 ==
LOC: ER 08:03 → TELE 08:04 → TELE-EAST 13:44
PROVIDERS: ADMIT Internal Medicine; ATTEND Family Medicine
DX: I35.0 Nonrheumatic aortic (valve) stenosis (principal); J96.20 Acute and chronic respiratory failure, unspecified whether with hypoxia or hypercapnia; I50.43 Acute on chronic combined systolic (congestive) and diastolic (congestive) heart failure; I13.0 Hypertensive heart and chronic kidney disease with heart failure and stage 1 through stage 4 chronic kidney disease, or unspecified chronic kidney disease; I24.9 Acute ischemic heart disease, unspecified; N18.4 Chronic kidney disease, stage 4 (severe); E11.22 Type 2 diabetes mellitus with diabetic chronic kidney disease; D69.6 Thrombocytopenia, unspecified; E11.21 Type 2 diabetes mellitus with diabetic nephropathy; E78.5 Hyperlipidemia, unspecified; E78.00 Pure hypercholesterolemia, unspecified; H40.9 Unspecified glaucoma; D63.1 Anemia in chronic kidney disease; E11.40 Type 2 diabetes mellitus with diabetic neuropathy, unspecified; E11.36 Type 2 diabetes mellitus with diabetic cataract; Z22.322 Carrier or suspected carrier of Methicillin resistant Staphylococcus aureus; Z82.49 Family history of ischemic heart disease and other diseases of the circulatory system; Z79.84 Long term (current) use of oral hypoglycemic drugs; Z79.82 Long term (current) use of aspirin; Z79.899 Other long term (current) drug therapy
CPT/HCPCS: 36415; 71045; 80053; 80061; 81001; 82550; 82962; 83036; 83735; 83880; 84443; 84484; 85025; 87081; 87804; 93005; 93306; 94640; 94644; 97163; G0378; J1815

== ENCOUNTER 2019-07-12 17:06 | Inpatient (IN) | payer MEDICARE, OTHER ==
[~2019-07-12] VITALS: Ht 30.5 cm; Wt 81.9 kg
[~2019-07-12 17:06] MED LIST changes: +AMLO10CA33 PO; -ASPI81CH49 PO; +ATOR20TA50 PO; +BRIM0.2S17 OP; +CALC0.25 PO; -CARB0.5D28 OP; +CARB0.5D8 EACHEYE; +CARV3.1240 PO; +ERGO1CAP23 PO; +FINA5TAB4 PO; +FURO40TA4 PO; +HYDR-4296 PO; +LATA0.0019 EACHEYE; -LISI40TA PO; +LISI40TA11 PO; +MULT-8 PO; +OMEG1205 PO; -PRAVASTATIN PO; +TIMO0.5S67 EACHEYE; -TRAV0.007 OP
--- NOTE | 2019-07-12 17:35 | NUR ---
Telemetry transfer from [facility] RIP GAMEZ admitted to Telemetry unit after SBAR received from Pedro ROSS. Patient oriented to Camelia Salomon, primary RN, unit, room, bed, and unit policies regarding patient care and visiting hours. Patient now on continuous telemetry monitoring, tele box # 30 and telemetry reading on arrival to unit is []. ALEXUS Medina notified of patients arrival to obtain orders for admission. No s/s of distress or SOB, no pain noted/reported. Bed locked in lowest position, side rails up x2, call light within reach. All questions and concerns addressed. Addendum: 07/12/19 at 1913 by Camelia Salomon RN telemetry reading on arrival to unit is sinus rhythm in the 70's.
[2019-07-12 18:20] VITALS: BP 141/59
[2019-07-12] MEDS ORDERED: DEXTROSE (50%) 50ML SYRG IV PRN (18:30)
[2019-07-12] MEDS ORDERED: ONDANSETRON HCL 4 MG/2 ML VIAL IV PRN (18:30)
[2019-07-12] MEDS ORDERED: MORPHINE SULF INJ 2 MG/ML SYRINGE 1ML IV PRN ×2 (18:30)
[2019-07-12] MEDS ORDERED: NITROGLYCERIN 0.4 MG SL TAB SL PRN (18:30)
[2019-07-12] MEDS ORDERED: HYDROcodone-ACET 5/325MG TAB PO PRN (18:30)
[2019-07-12] MEDS: ACETAMINOPHEN 500 MG TAB PO PRN (19:18)
--- NOTE | 2019-07-12 19:30 | NUR ---
Opening Shift Note Assumed care of patient. Patient is awake and alert. No S/S of distress/SOB or pain. Right upper chest dialysis access present. Instructed on POC and to call for assist PRN, will continue to monitor for changes Q1hr and PRN. Bed locked in lowest position and bed rails up x2. Call light within reach.
[2019-07-12 22:00] VITALS: BP 156/55
[2019-07-12] MEDS: ACCU-CHEK COMFORT CURVE STRIP VI SCH (23:12)
[2019-07-12] MEDS: CARVEDILOL 3.125 MG TAB PO SCH (23:12)
[2019-07-12] MEDS: BRIMONIDINE 0.2% OPTH Soln 5ml OP SCH (23:12)
[2019-07-12] MEDS: InsuLIN REG 1unit/0.01ml Soln (100units/ml) SC SCH (23:56)
--- NOTE | 2019-07-13 | NUR ---
Dialysis access site presented with moderate drainage at start of shift. Site redressed.
--- NOTE | 2019-07-13 02:00 | NUR ---
Dialysis access site presented with minimum drainage. Dressing changed
[2019-07-13 05:00] VITALS: BP 158/71
[2019-07-13 05:23] LABS: Basophils # (auto) 0 10 ^3/uL (0-0.2); Eosinophils # (auto) 0.1 10 ^3/uL (0-0.8); Hemoglobin 7.7 g/dL (13.5-17.5); Lymphocytes # (auto) 0.6 10 ^3/uL (0.4-5.4); Monocytes # (auto) 0.4 10 ^3/uL (0-1.3); Nucleated Red Blood Cells % 0.1 %
[2019-07-13 05:26] LABS: Basophils % (auto) 0.4 % (0.0-2.0); Eosinophils % (auto) 2.2 % (0.0-7.0); Hematocrit 22.4 % (41.0-53.0); Lymphocytes % (auto) 16.5 % (10.0-50.0); Mean Corpuscular Hemoglobin 34.4 pg (28.0-32.0); Mean Corpuscular Hgb Conc. 34.5 g/dL (32.0-36.0); Mean Corpuscular Volume 99.7 fL (80.0-100.0); Monocytes % (auto) 11.7 % (0.0-12.0); Neutrophils # (auto) 2.4 10 ^3/uL (1.6-8.6); Neutrophils % (auto) 69.2 % (37.0-80.0); Platelet Count (auto) 53 10^3/uL (140-450); Red Blood Cells 2.25 10^6/uL (4.5-5.90); Red Cell Distribution Width 13.8 % (11.8-14.3); White Blood Cell 3.4 10^3/uL (4.4-10.8)
[2019-07-13 05:45] LABS: BUN/Creatinine Ratio 13.9; Calcium 7.7 mg/dL (8.5-10.1); Potassium 4.2 mmol/L (3.5-5.1)
[2019-07-13] MEDS: ACCU-CHEK COMFORT CURVE STRIP VI SCH ×4 (06:19→21:16)
[2019-07-13] MEDS: InsuLIN REG 1unit/0.01ml Soln (100units/ml) SC SCH ×4 (06:19→21:23)
--- NOTE | 2019-07-13 06:35 | NUR ---
Hospitalist made aware of drainage at dialysis access site. No new orders given. Will continue to monitor for changes and endorse care to day shift RN
[2019-07-13] MEDS: CARVEDILOL 3.125 MG TAB PO SCH ×2 (08:26→18:03)
[2019-07-13 09:00] VITALS: BP 159/74
[2019-07-13] MEDS ORDERED: HCTZ 25 MG TAB PO SCH (10:00)
[2019-07-13] MEDS: CLOPIDOGREL BISULFATE 75 MG TAB PO SCH (10:06)
[2019-07-13] MEDS: ATORVASTATIN 20 MG TAB PO SCH (10:07)
[2019-07-13] MEDS: ASPirin 81 mg TAB PO SCH (10:09)
[2019-07-13] MEDS: FINASTERIDE 5 MG TAB PO SCH (10:10)
[2019-07-13] MEDS: BRIMONIDINE 0.2% OPTH Soln 5ml OP SCH ×2 (10:11→21:16)
[2019-07-13] MEDS: LISINOPRIL 20 MG TAB PO SCH (10:11)
[2019-07-13 13:00] VITALS: BP 115/62
[2019-07-13] MEDS: ACETAMINOPHEN 500 MG TAB PO PRN (15:27)
[2019-07-13 17:00] VITALS: BP 139/78
--- NOTE | 2019-07-13 19:30 | NUR ---
OPENING NOTE REPORT RECEIVED FROM DAY SHIFT RN PATIENT IS A/OX4 RESTING COMFORTABLY IN BED. PATIENT IS ON ROOM AIR, DRESSING IN PLACE TO RIGHT UPPER CHEST DIALYSIS CATHETER. DRESSING IS C/D/I. 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 DRESSING TO LEFT GROIN IS C/D/I, NO SIGNS OF BLEEDING OR HEMATOMA. POC DISCUSSED WITH PATIENT AND ALL QUESTIONS ANSWERED. WILL MONITOR Q1H PRN THROUGHOUT SHIFT, CALL LIGHT WITHIN REACH.
[2019-07-13 22:00] VITALS: BP 145/64
[2019-07-14] VITALS (11 sets, daily range): BP systolic 123–168; BP diastolic 53–79
--- NOTE | 2019-07-14 03:50 | NUR ---
HOME MEDS PATIENT HAS HOME MEDICATIONS AT BEDSIDE IN BLACK BACKPACK. EDUCATED PATIENT THAT PER POLICY WE CANNOT KEEP MEDICATIONS AT BEDSIDE AND THAT THEY MUST BE TAKEN TO THE PHARMACY. PATIENT REFUSES TO ALLOW THIS RN TO TAKE HIS HOME MEDICATIONS TO PHARMACY. PATIENT STATES, "THE DAY NURSE ALREADY DOCUMENTED ALL OF THESE, WHY DO YOU NEED TO TAKE THEM?". PATIENT BECAME VERBALLY UPSET, STARTING RAISING VOICE AT THIS RN. EDUCATED PATIENT THAT IT IS A SAFETY MEASURE TO TAKE MEDICATIONS TO THE PHARMACY. PATIENT STATES, "I WON'T TAKE THEM, I JUST WANT THEM IN MY BACKPACK." PATIENT REFUSES THIS RN TO TURN IN HIS MEDICATIONS TO THE PHARMACY DIRECTOR WORKFORCE MANAGEMENT CIARA MADE AWARE.
--- NOTE | 2019-07-14 04:01 | NUR ---
PAGED HOSPITALIST RE: PATIENT UNCOMFORTABLE, STATING HE NEEDS HIS BPH MEDICATIONS. PATIENT STATES HE IS NOT ABLE TO VOID AT THIS TIME. PATIENT BP ALSO ELEVATED AT 189/79 WILL WAIT FOR CALL BACK
--- NOTE | 2019-07-14 04:03 | NUR ---
RECEIVED CALL BACK FROM HOSPITALIST JASWINDER UPDATED HOSPITALIST THAT PATIENT HAS NOT GOTTEN HIS BPH MEDS. FINASTERIDE DUE AT 1000 THIS AM AND HOME TERAZOSIN IS NOT ORDERED. PER HOSPITALIST, "JUST GIVE HIM HIS MORNING MEDICATIONS NOW". VERIFIED WITH HOSPITALIST TO PLACE ORDER FOR TERAZOSIN AND GIVE NOW WITH FINASTERIDE, HOSPITALIST CONFIRMED. ALL ORDERS READ BACK AND VERIFIED, WILL CARRY OUT.
[2019-07-14] MEDS ORDERED: TERAZOSIN HCL 5 MG CAP PO ONE (04:15)
[2019-07-14] MEDS: FINASTERIDE 5 MG TAB PO SCH (04:24)
--- NOTE | 2019-07-14 05:27 | NUR ---
SPOKE WITH JUANCHO FROM [facility] PER RN, "PLEASE HOLD ALL MORNING BP MEDICATIONS. I WILL BE THERE AT 10AM" WILL ENDORSE TO DAYSHIFT RN
[2019-07-14] MEDS: InsuLIN REG 1unit/0.01ml Soln (100units/ml) SC SCH ×4 (06:23→22:00)
[2019-07-14] MEDS: ACCU-CHEK COMFORT CURVE STRIP VI SCH ×4 (06:23→22:14)
--- NOTE | 2019-07-14 06:55 | NUR ---
VOID PATIENT VOIDED 900ML OF CLEAR YELLOW URINE PATIENT STATES HE NO LONGER FEELS RETENTION
[2019-07-14] MEDS ORDERED: SODIUM CHL 0.9% 1000 ML BAG XX ONE (07:00)
--- NOTE | 2019-07-14 07:19 | NUR ---
CLOSING PATIENT RESTING COMFORTABLY IN BED, NO S/S OF DISTRESS NOTED. CALL LIGHT WITHIN REACH CARE ENDORSED TO DAY SHIFT RN
[2019-07-14] MEDS: CARVEDILOL 3.125 MG TAB PO SCH ×2 (08:00→18:37)
[2019-07-14] MEDS: LISINOPRIL 20 MG TAB PO SCH (10:00)
[2019-07-14] MEDS: CARBOXYMETHYLCELLULOSE 0.5% EACHEYE SCH ×2 (10:00→22:03)
--- NOTE | 2019-07-14 10:00 | NUR ---
Attempted PT eval but pt is currently receiving dialysis. Will attempt again later.
[2019-07-14 11:01] LABS: Basophils # (auto) 0 10 ^3/uL (0-0.2); Basophils % (auto) 0.6 % (0.0-2.0); Eosinophils # (auto) 0.1 10 ^3/uL (0-0.8); Eosinophils % (auto) 3.9 % (0.0-7.0); Hematocrit 19.3 % (41.0-53.0); Lymphocytes # (auto) 0.5 10 ^3/uL (0.4-5.4); Lymphocytes % (auto) 30.9 % (10.0-50.0); Mean Corpuscular Hemoglobin 34.3 pg (28.0-32.0); Mean Corpuscular Hgb Conc. 34.3 g/dL (32.0-36.0); Mean Corpuscular Volume 99.9 fL (80.0-100.0); Monocytes # (auto) 0.1 10 ^3/uL (0-1.3); Monocytes % (auto) 8.4 % (0.0-12.0); Neutrophils # (auto) 0.8 10 ^3/uL (1.6-8.6); Neutrophils % (auto) 56.2 % (37.0-80.0); Platelet Count (auto) 41 10^3/uL (140-450); Red Blood Cells 1.93 10^6/uL (4.5-5.90); Red Cell Distribution Width 13.8 % (11.8-14.3)
[2019-07-14 11:15] LABS: White Blood Cell 1.5 10^3/uL (4.4-10.8)
[2019-07-14 11:16] LABS: Albumin 2.3 g/dL (3.4-5.0); Calcium 7.6 mg/dL (8.5-10.1); Hemoglobin 6.6 g/dL (13.5-17.5); Potassium 3.8 mmol/L (3.5-5.1)
[2019-07-14 11:20] LABS: BUN/Creatinine Ratio 13.8; Bilirubin, Total 0.6 mg/dL (0.2-1.0); Total Protein 5.3 g/dL (6.4-8.2)
[2019-07-14] MEDS: TIMOLOL MAL 0.5% OPTH(EYE) SOL 5ML EACHEYE SCH ×2 (12:32→22:03)
[2019-07-14] MEDS: BRIMONIDINE 0.2% OPTH Soln 5ml OP SCH ×2 (12:33→22:01)
--- NOTE | 2019-07-14 13:00 | NUR ---
Dialysis nurse stated she took off 1.8 liters today
--- NOTE | 2019-07-14 14:32 | NUR ---
Spoke with Aura regarding patients chair time and she stated she is unable to get chair time due to patients hepatitis panels still pending. I called and notified Dr. Apollo Ferrell
--- NOTE | 2019-07-14 14:32 | NUR ---
Assessment Patient is a 84-year-old male who is alert and oriented. Prior to admission patient lived home alone and functioned independently. Patient informed me he can care for his own ADLs. Per patient he will return home to his prior living arrangements post discharge and his friend will transport him home. Patient informed me he has a cane and does not need any other equipment. Patient informed me he goes to [facility] to see his doctor however, does not remember his name. Advised patient there is a Social Service consult for home health physical therapy and outpatient chair time for Dialysis. Information and choice letter was given to patient for home health. Patient stated he does not have a home health preference and would like [facility] that MD Dr. Ferrell recommended. Informed patient he has the right to participate in all discharge planning. Patient verbalized understanding and agrees to discharge plan. Faxed Clinical information to [facility]. Per Valerie with [facility] Ph:) order was received and they will see patient within 24-48hrs upon d/c day. Faxed Clinical information to [facility]- ) Dg- ). Per Dg ) with [facility]ie who is covering Geovanna order was received and due to the Hepatitis B still pending they will assigned chair time for patient on Wednesday07/17/2019. Nurse Donna was informed and will notify MD Dr. Ferrell. Addendum: 07/14/19 at 1433 by CHRISTY MARLOW Amended: Links added.
[2019-07-14] MEDS: ASPirin 81 mg TAB PO SCH (14:55)
[2019-07-14] MEDS: ATORVASTATIN 20 MG TAB PO SCH (14:55)
[2019-07-14] MEDS: CLOPIDOGREL BISULFATE 75 MG TAB PO SCH (14:55)
--- NOTE | 2019-07-14 16:53 | NUR ---
D/C Planning Faxed updated order for home health safety evaluation, medication management, vitals and physical therapy to [facility].
--- NOTE | 2019-07-14 19:25 | NUR ---
Opening Shift Note Assumed care of patient, awake and alert. No S/S of distress/SOB or pain. Safety measures in place bed in lowest position, side rails up x2, and call light within reach. Instructed on POC and to call for assist PRN, will continue to monitor for changes Q1hr and PRN.
[2019-07-14] MEDS ORDERED: EPOETIN ALFA 10,000 UNIT/1 ML VIAL SC ONE (21:00)
[2019-07-14] MEDS: LATANOPROST 0.005 % OPTH(EYE) SOL 2.5ML EACHEYE SCH (22:02)
[2019-07-14] MEDS: ACETAMINOPHEN 500 MG TAB PO PRN (22:10)
--- NOTE | 2019-07-14 22:10 | NUR ---
Pain Patient complaining of leg and foot pain 3/10. Medication administered. Will reassess in one hour. Will continue to monitor every hour and as needed.
--- NOTE | 2019-07-14 23:10 | NUR ---
Pain reassessed Patient states pain is 0/10. Patient is lying in bed watching television. Will continue to monitor every hour and as needed.
--- NOTE | 2019-07-14 23:13 | NUR ---
Blood Transfusion 2256 beginning transfusion of 2nd unit of blood. Dayshift RN administered 1st unit. Patient vitals taken before administration. Vitals taken and patient is tolerating procedure well. Will continue to monitor.
[2019-07-15] VITALS (8 sets, daily range): BP systolic 157–175; BP diastolic 60–77
--- NOTE | 2019-07-15 01:16 | NUR ---
Transfusion complete. Patient tolerated procedure well. Patient's BP elevated 175/66. Paged hospitalist. Addendum: 07/15/19 at 0226 by SAMEER VOGEL RN RN Infusion completed at 0116. Hospitalist paged at 0125 after ensuring patient was comfortable in bed. Awaiting call.
--- NOTE | 2019-07-15 01:39 | NUR ---
Spoke to hospitalist about patient's elevated BP and leg/foot pain. Orders received.
--- NOTE | 2019-07-15 01:50 | NUR ---
Called outside pharmacy to have patient's medication verified. Awaiting clearance in the pyxis.
[2019-07-15] MEDS ORDERED: HYDROcodone-ACET 5/325MG TAB PO ONE (02:00)
[2019-07-15] MEDS ORDERED: hydrALAZINE HCL 25 MG TAB PO ONE (02:00)
[2019-07-15] MEDS: ACCU-CHEK COMFORT CURVE STRIP VI SCH ×4 (06:39→22:33)
[2019-07-15] MEDS: InsuLIN REG 1unit/0.01ml Soln (100units/ml) SC SCH ×4 (06:39→22:40)
--- NOTE | 2019-07-15 07:30 | NUR ---
Opening Shift Note Assumed care of patient, awake and alert. No S/S of distress/SOB or pain. For safety patients bed is locked, in the lowest position with 2 side rails up and the call light with in reach. Instructed on POC and to call for assist PRN, will continue to monitor for any changes in condition.
--- NOTE | 2019-07-15 08:00 | NUR ---
Dr. Apollo Ferrell at bedside to discuss plan of care with patient.
[2019-07-15 08:15] LABS: Basophils # (auto) 0 10 ^3/uL (0-0.2); Eosinophils # (auto) 0.1 10 ^3/uL (0-0.8); Hemoglobin 8.4 g/dL (13.5-17.5); Neutrophils # (auto) 1.6 10 ^3/uL (1.6-8.6); White Blood Cell 2.8 10^3/uL (4.4-10.8)
[2019-07-15 08:17] LABS: Basophils % (auto) 0.9 % (0.0-2.0); Eosinophils % (auto) 3.3 % (0.0-7.0); Hematocrit 23.6 % (41.0-53.0); Lymphocytes # (auto) 0.6 10 ^3/uL (0.4-5.4); Lymphocytes % (auto) 21.5 % (10.0-50.0); Mean Corpuscular Hemoglobin 33.4 pg (28.0-32.0); Mean Corpuscular Hgb Conc. 35.6 g/dL (32.0-36.0); Mean Corpuscular Volume 94.1 fL (80.0-100.0); Monocytes # (auto) 0.5 10 ^3/uL (0-1.3); Neutrophils % (auto) 58.3 % (37.0-80.0); Nucleated Red Blood Cells % 0.1 %; Platelet Count (auto) 43 10^3/uL (140-450)
[2019-07-15 08:37] LABS: Albumin 2.6 g/dL (3.4-5.0); Calcium 7.9 mg/dL (8.5-10.1)
[2019-07-15 08:40] LABS: BUN/Creatinine Ratio 10.3; Bilirubin, Total 0.9 mg/dL (0.2-1.0); Total Protein 5.8 g/dL (6.4-8.2)
[2019-07-15] MEDS: CARVEDILOL 3.125 MG TAB PO SCH ×2 (09:12→17:40)
[2019-07-15] MEDS: CLOPIDOGREL BISULFATE 75 MG TAB PO SCH (09:12)
[2019-07-15] MEDS: FINASTERIDE 5 MG TAB PO SCH (09:13)
[2019-07-15] MEDS: ATORVASTATIN 20 MG TAB PO SCH (09:13)
[2019-07-15] MEDS: LISINOPRIL 20 MG TAB PO SCH (09:14)
[2019-07-15] MEDS: ASPirin 81 mg TAB PO SCH (09:14)
[2019-07-15] MEDS: CARBOXYMETHYLCELLULOSE 0.5% EACHEYE SCH ×2 (09:15→22:41)
[2019-07-15] MEDS: TIMOLOL MAL 0.5% OPTH(EYE) SOL 5ML EACHEYE SCH ×2 (09:16→22:43)
[2019-07-15] MEDS: BRIMONIDINE 0.2% OPTH Soln 5ml OP SCH ×2 (09:16→22:42)
--- NOTE | 2019-07-15 14:30 | NUR ---
Physical Therapy at bedside to ambulate patient.
--- NOTE | 2019-07-15 19:20 | NUR ---
Opening Shift Note Assumed care of patient, awake and alert. No S/S of distress/SOB or pain. Safety measures in place bed in lowest position, side rails x2 up, and call light within reach. Instructed on POC and to call for assist PRN, will continue to monitor for changes Q1hr and PRN.
[2019-07-15] MEDS: LATANOPROST 0.005 % OPTH(EYE) SOL 2.5ML EACHEYE SCH (22:42)
--- NOTE | 2019-07-15 22:50 | NUR ---
Patient's BP 168/66. PRN medication not available. Called hospitalist for orders. Will continue to monitor.
--- NOTE | 2019-07-15 23:45 | NUR ---
Hospitalist returned page, orders received.
[2019-07-15] MEDS: hydrALAZINE HCL 25 MG TAB PO PRN (23:49)
[2019-07-16] MEDS: hydrALAZINE HCL 25 MG TAB PO PRN (05:28)
--- NOTE | 2019-07-16 05:29 | NUR ---
Patient states his prostate is enlarging. Patient requesting to take Terazosin in addition to his Proscar. Will endorse to the dayshift RN. Will continue to monitor every hour and as needed.
[2019-07-16 05:51] VITALS: BP 206/80
[2019-07-16] MEDS: ACCU-CHEK COMFORT CURVE STRIP VI SCH ×4 (06:48→22:46)
[2019-07-16] MEDS: InsuLIN REG 1unit/0.01ml Soln (100units/ml) SC SCH ×4 (06:48→22:00)
[2019-07-16] MEDS: CARVEDILOL 3.125 MG TAB PO SCH ×2 (08:00→18:00)
[2019-07-16] MEDS ORDERED: cloNIDine HCL 0.1 MG TAB PO ONE (08:30)
--- NOTE | 2019-07-16 08:30 | NUR ---
Dr. Ferrell at bedside, notified him of patients elevated blood pressure. Orders received, will document and carry out.
[2019-07-16 08:49] VITALS: BP 206/88
[2019-07-16] MEDS ORDERED: NIFEdipine ER 30 MG TAB PO ONE (10:00)
[2019-07-16] MEDS ORDERED: HCTZ 25 MG TAB PO SCH (10:00)
[2019-07-16] MEDS: LISINOPRIL 20 MG TAB PO SCH (10:00)
[2019-07-16 10:20] VITALS: BP 120/56
[2019-07-16] MEDS: CARBOXYMETHYLCELLULOSE 0.5% EACHEYE SCH ×2 (11:30→22:43)
[2019-07-16] MEDS: TIMOLOL MAL 0.5% OPTH(EYE) SOL 5ML EACHEYE SCH ×2 (11:30→22:43)
[2019-07-16] MEDS: ASPirin 81 mg TAB PO SCH (11:31)
[2019-07-16] MEDS: ACETAMINOPHEN 500 MG TAB PO PRN (11:31)
[2019-07-16] MEDS: BRIMONIDINE 0.2% OPTH Soln 5ml OP SCH ×2 (11:32→22:42)
[2019-07-16] MEDS: ATORVASTATIN 20 MG TAB PO SCH (11:33)
[2019-07-16] MEDS: CLOPIDOGREL BISULFATE 75 MG TAB PO SCH (11:33)
[2019-07-16] MEDS: FINASTERIDE 5 MG TAB PO SCH (11:33)
[2019-07-16 13:00] VITALS: BP 111/53
--- NOTE | 2019-07-16 15:00 | NUR ---
CAITLIN GALLAGHER PA AT BESIDE WITH PATIENT FOR HEMATOLOGY CONSULT
[2019-07-16 15:19] LABS: Basophils # (auto) 0 10 ^3/uL (0-0.2); Basophils % (auto) 0.9 % (0.0-2.0); Eosinophils # (auto) 0.1 10 ^3/uL (0-0.8); Hemoglobin 8.7 g/dL (13.5-17.5); Lymphocytes # (auto) 0.5 10 ^3/uL (0.4-5.4); Mean Corpuscular Hgb Conc. 33.8 g/dL (32.0-36.0); Monocytes # (auto) 0.4 10 ^3/uL (0-1.3); Neutrophils # (auto) 1.7 10 ^3/uL (1.6-8.6); White Blood Cell 2.7 10^3/uL (4.4-10.8)
[2019-07-16 15:22] LABS: Eosinophils % (auto) 2.8 % (0.0-7.0); Hematocrit 25.8 % (41.0-53.0); Lymphocytes % (auto) 18.4 % (10.0-50.0); Mean Corpuscular Hemoglobin 32.6 pg (28.0-32.0); Mean Corpuscular Volume 96.5 fL (80.0-100.0); Monocytes % (auto) 15.4 % (0.0-12.0); Neutrophils % (auto) 62.5 % (37.0-80.0); Platelet Count (auto) 55 10^3/uL (140-450); Red Blood Cells 2.67 10^6/uL (4.5-5.90); Red Cell Distribution Width 16.4 % (11.8-14.3)
[2019-07-16 15:30] LABS: % Iron Saturation 22.5 % (20-55)
--- NOTE | 2019-07-16 15:41 | NUR ---
NOTIFIED DR. MARTIN OF PATIENTS POSITIVE MRSA IN NARES. ORDER RECEIVED WILL DOCUMENT AND CARRY OUT
[2019-07-16 17:00] VITALS: BP 101/50
[2019-07-16 21:18] VITALS: BP 112/59
[2019-07-16] MEDS: MUPIROCIN 2% OINT 15gm or 22gm EACHNOSTRI SCH (22:42)
[2019-07-16] MEDS: LATANOPROST 0.005 % OPTH(EYE) SOL 2.5ML EACHEYE SCH (22:42)
[2019-07-16] MEDS: TERAZOSIN HCL 5 MG CAP PO SCH (22:45)
[2019-07-17 05:08] VITALS: BP 133/67
[2019-07-17] MEDS: ACCU-CHEK COMFORT CURVE STRIP VI SCH ×4 (06:36→22:10)
[2019-07-17] MEDS: InsuLIN REG 1unit/0.01ml Soln (100units/ml) SC SCH ×4 (06:37→22:13)
[2019-07-17] MEDS ORDERED: SODIUM CHL 0.9% 1000 ML BAG XX ONE (07:00)
--- NOTE | 2019-07-17 07:31 | NUR ---
Dialysis Nurse at Bedside
--- NOTE | 2019-07-17 07:49 | NUR ---
Opening Note Assumed pt care form NOC nurse. Pt is a/ox4 with no s/s of distress or SOB. Pt is currently sitting upright in bed with no complaints at this time receiving dialysis. Discussed POC with pt; pending manager social work consult, pt verbalized understanding. Safety measures maintained with call light within reach, bed in lowest position and side rails up. Will continue to monitor.
[2019-07-17] MEDS: CARVEDILOL 3.125 MG TAB PO SCH ×2 (08:00→17:43)
--- NOTE | 2019-07-17 08:10 | NUR ---
Pt Refused IV Change Pt's IV needs to be changed due to hospital policy; IV placed on 07/02. Pt states "I will be discharge soon, I don't need to be stuck again". Provided pt with further education, pt still refused. Will continue to monitor.
--- NOTE | 2019-07-17 08:34 | NUR ---
Dr Ferrell at Bedside MD to see pt. Requested that I follow up with Hep panel for d/c planning. MD requested that I contact him as well as health social work professor when results populate. Called lab, stated that they should have test results today. Will continue to monitor.
[2019-07-17 09:00] VITALS: BP 140/66
[2019-07-17] MEDS: ACETAMINOPHEN 500 MG TAB PO PRN ×2 (10:10→22:22)
[2019-07-17] MEDS: BRIMONIDINE 0.2% OPTH Soln 5ml OP SCH ×2 (10:11→21:41)
[2019-07-17] MEDS: TIMOLOL MAL 0.5% OPTH(EYE) SOL 5ML EACHEYE SCH ×2 (10:11→21:44)
[2019-07-17] MEDS: CARBOXYMETHYLCELLULOSE 0.5% EACHEYE SCH ×2 (10:12→21:41)
[2019-07-17] MEDS: MUPIROCIN 2% OINT 15gm or 22gm EACHNOSTRI SCH ×2 (10:15→21:44)
[2019-07-17 10:49] LABS: Free T4 (Free Thyroxine) 0.95 ng/dL (0.89-1.76)
[2019-07-17 10:50] LABS: Folate (Folic Acid) 15.65 ng/mL (5.38-24)
[2019-07-17] MEDS: ATORVASTATIN 20 MG TAB PO SCH (11:32)
[2019-07-17] MEDS: FINASTERIDE 5 MG TAB PO SCH (11:33)
[2019-07-17] MEDS: ASPirin 81 mg TAB PO SCH (11:33)
[2019-07-17] MEDS: CLOPIDOGREL BISULFATE 75 MG TAB PO SCH (11:33)
[2019-07-17] MEDS: FUROSEMIDE 20 MG TAB PO SCH (11:33)
[2019-07-17] MEDS: LISINOPRIL 20 MG TAB PO SCH (11:33)
--- NOTE | 2019-07-17 11:36 | NUR ---
Dialysis Complete Per branch retail executive, 1L was removed off of pt. Last Bp is 136/60 with a HR of 60. Will continue to monitor.
[2019-07-17 11:37] VITALS: BP 136/60
[2019-07-17 12:22] LABS: Hepatitis B Surface Antigen Negative (Negative); Hepatitis C Antibody Negative (Negative)
--- NOTE | 2019-07-17 12:25 | NUR ---
D/C Planning Pt's hepatic screen resulted. Contacted Soni with social and political studies professor with results to allow for chair time to be set up. Left message with SS. Will notify Dr Ferrell of results. Addendum: 07/17/19 at 1403 by ANALILIA BENOIT RN RN Dr Ferrell aware of Hep panel.
--- NOTE | 2019-07-17 13:10 | NUR ---
Dr Ferrell Called stated to have d/c postponed until tomorrow to ensure pt's has appropriate chair time set up. Notified the pt. Will continue to monitor.
--- NOTE | 2019-07-17 13:26 | NUR ---
Nutrition Assessment Notes Please refer to link for full assessment notes. Est energy needs: 7331-1027 kcals (20-23 kcal/kgBW) d/t age Est protein needs: 81-90 gms/day (1.0-1.1 gm/kgBW) d/t age Will continue to monitor and reassess prn. Addendum: 07/17/19 at [address] Amended: Links added. Addendum: 07/17/19 at [address] ADDITIONAL RECOMMENDATIONS: Consider a Renal Standard diet in lieu of current diet order.
--- NOTE | 2019-07-17 16:39 | NUR ---
D/C Planning Karly with [facility] called, notified me of confirmed chair time for pt. Per Karly, pt's chair time is M,W,F at 1400 at the [place] location. Pt will start at [place] and then center will try to move him closer to home. Addendum: 07/17/19 at 1700 by ANALILIA BENOIT RN RN Per pt, he is to only have dialysis on M and F, not scheduled M,W, and F. Will notify It Architecture Consultant in d/c planning.
--- NOTE | 2019-07-17 16:43 | NUR ---
D/C Planning Received followed up called from Geovanna with [facility]. Per Geovanna patient chair time will be M,W,F at 14:00 in [facility] address: [id number] Ph:). Informed VANDANA Waters.
[2019-07-17 17:00] VITALS: BP 133/64
[2019-07-17] MEDS ORDERED: EPOETIN ALFA 10,000 UNIT/1 ML VIAL SC ONE (21:00)
[2019-07-17 21:15] VITALS: BP 140/62
[2019-07-17] MEDS: TERAZOSIN HCL 5 MG CAP PO SCH (21:40)
[2019-07-17] MEDS: LATANOPROST 0.005 % OPTH(EYE) SOL 2.5ML EACHEYE SCH (21:42)
[2019-07-18 05:23] VITALS: BP 150/67
[2019-07-18] MEDS: InsuLIN REG 1unit/0.01ml Soln (100units/ml) SC SCH (06:16)
[2019-07-18] MEDS: ACCU-CHEK COMFORT CURVE STRIP VI SCH (06:16)
[2019-07-18] MEDS: CARVEDILOL 3.125 MG TAB PO SCH (07:24)
--- NOTE | 2019-07-18 07:36 | NUR ---
Opening Note Assumed pt care from [facility] nurse. Pt is a/ox4 with no s/s of distress or SOB. Pt is currently sitting upright in bed with no complaints at this time. Discussed POC with pt and possible pending d/c today; pt verbalized understanding. Safety measures maintained with call light within reach, bed in lowest position and side rails up. Will continue to monitor for changes. At this time, pt's IV was inserted on 07/02, pt is refusing change. Pt states "I will be leaving soon". Provided education, pt still refused.
[2019-07-18 09:00] VITALS: BP 141/63
[2019-07-18] MEDS: MUPIROCIN 2% OINT 15gm or 22gm EACHNOSTRI SCH (09:41)
[2019-07-18] MEDS: CARBOXYMETHYLCELLULOSE 0.5% EACHEYE SCH (09:42)
[2019-07-18] MEDS: CLOPIDOGREL BISULFATE 75 MG TAB PO SCH (09:42)
[2019-07-18] MEDS: BRIMONIDINE 0.2% OPTH Soln 5ml OP SCH (09:42)
[2019-07-18] MEDS: TIMOLOL MAL 0.5% OPTH(EYE) SOL 5ML EACHEYE SCH (09:42)
[2019-07-18] MEDS: FINASTERIDE 5 MG TAB PO SCH (09:42)
[2019-07-18] MEDS: ATORVASTATIN 20 MG TAB PO SCH (09:43)
[2019-07-18] MEDS: LISINOPRIL 20 MG TAB PO SCH (09:43)
[2019-07-18] MEDS: ASPirin 81 mg TAB PO SCH (09:43)
[2019-07-18] MEDS: FUROSEMIDE 20 MG TAB PO SCH (09:43)
--- NOTE | 2019-07-18 09:49 | NUR ---
Dr Ferrell at Bedside MD to see pt. Plans to d/c pt home today. Will implement and continue to monitor.
--- NOTE | 2019-07-18 11:10 | NUR ---
IV D/C'ed Iv to pt's R FA removed. Catheter was removed fully intact. Site is asymptomatic. Pressure was applied to site for 3 minutes with gauze and then wrapped in coban. Pt instructed to keep dressing on for 30 minutes. Pt verbalized understanding.
--- NOTE | 2019-07-18 11:15 | NUR ---
Tele 30 D/C'ed Tele number 30 d/c'ed. Staff made aware of pt's d/c and return of box.
--- NOTE | 2019-07-18 12:06 | NUR ---
Pt D/C'ed Off Unit Pt d/c'ed off unit via wheelchair. Pt is a/ox4 with no s/s of distress or SOB. Pt has all belongings, all education material, all prescriptions and all questions were answered. Pt aware of needed follow up appointments. IV and tele box were d/c'ed prior to d/c. All questions were answered.
[2019-07-18 12:32] VITALS: BP 181/78
[2019-09-25 11:10] VITALS: BP 67/37
== END 2019-07-18 12:05 | disposition home health service (06) | DRG 683 ==
LOC: TELE-CENTR 17:49
PROVIDERS: ADMIT Nurse Practitioner Acute Care; ATTEND Family Medicine
PROC: 30233N1 Transfusion of Nonautologous Red Blood Cells into Peripheral Vein, Percutaneous Approach (ICD-10-PCS; principal; 2019-07-14)
PROC: 5A1D70Z Performance of Urinary Filtration, Intermittent, Less than 6 Hours Per Day (ICD-10-PCS; 2019-07-14)
PROC: 5A1D70Z Performance of Urinary Filtration, Intermittent, Less than 6 Hours Per Day (ICD-10-PCS; 2019-07-17)
DX: N17.9 Acute kidney failure, unspecified (principal); D61.818 Other pancytopenia; I13.2 Hypertensive heart and chronic kidney disease with heart failure and with stage 5 chronic kidney disease, or end stage renal disease; I50.32 Chronic diastolic (congestive) heart failure; N18.6 End stage renal disease; D69.6 Thrombocytopenia, unspecified; Z95.2 Presence of prosthetic heart valve; I35.0 Nonrheumatic aortic (valve) stenosis; D63.8 Anemia in other chronic diseases classified elsewhere; N40.0 Benign prostatic hyperplasia without lower urinary tract symptoms; E78.5 Hyperlipidemia, unspecified; Z99.2 Dependence on renal dialysis; E11.22 Type 2 diabetes mellitus with diabetic chronic kidney disease; N14.1 Nephropathy induced by other drugs, medicaments and biological substances; Z88.8 Allergy status to other drugs, medicaments and biological substances; Z83.3 Family history of diabetes mellitus; Z82.49 Family history of ischemic heart disease and other diseases of the circulatory system
CPT/HCPCS: 36415; 71045; 80048; 80053; 82607; 82668; 82746; 82962; 83010; 83540; 83550; 83615; 83735; 83880; 84439; 84443; 85025; 85045; 85652; 86225; 86235; 86703; 86803; 86850; 86880; 86900; 86901; 86920; 87081; 87340; 90935; G0378; J0885; J1815; J2405

== ENCOUNTER → 2019-09-13 | Outpatient (CLI) | payer MEDICARE, OTHER ==
[~2019-09-13] MED LIST changes: +CARB0.5D36 EACHEYE; -CARB0.5D8 EACHEYE; +LISI40TA PO; -LISI40TA11 PO
== END | disposition home or self-care (01) ==
LOC: XYW 08:01
PROVIDERS: ATTEND Internal Medicine
DX: I08.3 Combined rheumatic disorders of mitral, aortic and tricuspid valves (principal)
CPT/HCPCS: 93306

== ENCOUNTER 2020-03-16 13:18 | Inpatient (IN) | payer MEDICARE, OTHER ==
[~2020-03-16] VITALS: Ht 185.4 cm; Wt 91.9 kg
[~2020-03-16 13:18] MED LIST changes: -CARB0.5D36 EACHEYE; +CARB0.5D8 EACHEYE; -LISI40TA PO; +LISI40TA11 PO
[2020-03-16 15:28] LABS: Basophils # (auto) 0 10 ^3/uL (0-0.2); Eosinophils # (auto) 0.2 10 ^3/uL (0-0.8); Hemoglobin 7.3 g/dL (13.5-17.5); Monocytes # (auto) 0.3 10 ^3/uL (0-1.3); Red Cell Distribution Width 15.3 % (11.8-14.3); White Blood Cell 2.3 10^3/uL (4.4-10.8)
[2020-03-16 15:30] LABS: Basophils % (auto) 1.1 % (0.0-2.0); Eosinophils % (auto) 7.3 % (0.0-7.0); Hematocrit 21.3 % (41.0-53.0); Lymphocytes # (auto) 0.6 10 ^3/uL (0.4-5.4); Lymphocytes % (auto) 24.5 % (10.0-50.0); Mean Corpuscular Hemoglobin 33.2 pg (28.0-32.0); Mean Corpuscular Hgb Conc. 34.1 g/dL (32.0-36.0); Mean Corpuscular Volume 97.4 fL (80.0-100.0); Neutrophils # (auto) 1.2 10 ^3/uL (1.6-8.6); Neutrophils % (auto) 54.1 % (37.0-80.0); Nucleated Red Blood Cells % 0.2 %; Platelet Count (auto) 43 10^3/uL (140-450); Red Blood Cells 2.19 10^6/uL (4.5-5.90)
[2020-03-16 15:49] LABS: Albumin 3.5 g/dL (3.4-5.0); BUN/Creatinine Ratio 11.3; Calcium 7.9 mg/dL (8.5-10.1)
[2020-03-16 15:55] LABS: Bilirubin, Total 0.5 mg/dL (0.2-1.0); Total Protein 6.6 g/dL (6.4-8.2)
[2020-03-16 16:07] LABS: Potassium 5.8 mmol/L (3.5-5.1)
[2020-03-16 16:19] LABS: Urine Bacteria FEW /hpf (None Seen); Urine Blood 1+ /uL (Negative); Urine Mucus FEW (None Seen); Urine Specific Gravity 1.012 (1.001-1.035); Urine WBC <1 /hpf (0 - 3)
[2020-03-16] MEDS ORDERED: ALBUTEROL SULF 2.5 MG/0.5ML(0.5%) NEB SOLN NEB ONE (16:30)
[2020-03-16] MEDS ORDERED: DEXTROSE (50%) 50ML SYRG IV ONE (16:30)
[2020-03-16] MEDS ORDERED: FUROSEMIDE 20 MG/2 ML VIAL IV ONE (16:30)
[2020-03-16] MEDS ORDERED: SODIUM BICARBONATE 8.4% INJ 50ML SYRINGE IV ONE (16:30)
[2020-03-16] MEDS ORDERED: InsuLIN REG 1unit/0.01ml Soln (100units/ml) IV ONE (16:30)
[2020-03-16] MEDS ORDERED: SODIUM ZIRCONIUM CYCL 10 GM PAK PO ONE (16:30)
[2020-03-16] MEDS ORDERED: CALCIUM GLUC 4.65meq/50ml D5AE 50 ML IV ONE (16:30)
[2020-03-16] MEDS ORDERED: ACETAMINOPHEN 500 MG TAB PO PRN (18:45)
[2020-03-16] MEDS ORDERED: NITROGLYCERIN 0.4 MG SL TAB SL PRN (18:45)
[2020-03-16] MEDS ORDERED: HYDROcodone-ACET 5/325MG TAB PO PRN (18:45)
[2020-03-16] MEDS ORDERED: ONDANSETRON HCL 4 MG/2 ML VIAL IV PRN (18:45)
[2020-03-16] MEDS ORDERED: diphenhdrAMINE HCL 50 MG/1 ML VL IV ONE (18:45)
[2020-03-16] MEDS ORDERED: MORPHINE SULF INJ 2 MG/ML SYRINGE 1ML IV PRN ×2 (18:45)
[2020-03-16] MEDS ORDERED: BUMETANIDE 2.5mg/10ml (0.25 mg/ml) INJ IV ONE (18:45)
[2020-03-16 19:36] LABS: Phosphorus 4.1 mg/dL (2.5-4.90); Uric Acid 7.3 mg/dL (3.5-7.2)
[2020-03-17] MEDS: CARVEDILOL 3.125 MG TAB PO SCH ×3 (01:00→21:53)
[2020-03-17] MEDS: TERAZOSIN HCL 5 MG CAP PO SCH ×2 (01:01→21:53)
[2020-03-17] MEDS ORDERED: BUMETANIDE 2.5mg/10ml (0.25 mg/ml) INJ IV SCH (06:00)
[2020-03-17] MEDS: hydrALAZINE HCL 25 MG TAB PO SCH ×3 (07:42→21:51)
[2020-03-17 08:58] LABS: Basophils # (auto) 0 10 ^3/uL (0-0.2); Eosinophils # (auto) 0.2 10 ^3/uL (0-0.8); Mean Corpuscular Hemoglobin 32.6 pg (28.0-32.0); Monocytes # (auto) 0.2 10 ^3/uL (0-1.3); Nucleated Red Blood Cells % 0.1 %; White Blood Cell 2.4 10^3/uL (4.4-10.8)
[2020-03-17 09:07] LABS: Basophils % (auto) 1.1 % (0.0-2.0); Eosinophils % (auto) 6.9 % (0.0-7.0); Hematocrit 21.6 % (41.0-53.0); Hemoglobin 7.2 g/dL (13.5-17.5); Lymphocytes # (auto) 0.5 10 ^3/uL (0.4-5.4); Lymphocytes % (auto) 19.2 % (10.0-50.0); Mean Corpuscular Hgb Conc. 33.4 g/dL (32.0-36.0); Mean Corpuscular Volume 97.6 fL (80.0-100.0); Monocytes % (auto) 9.9 % (0.0-12.0); Neutrophils # (auto) 1.5 10 ^3/uL (1.6-8.6); Neutrophils % (auto) 62.9 % (37.0-80.0); Platelet Count (auto) 43 10^3/uL (140-450); Red Blood Cells 2.21 10^6/uL (4.5-5.90); Red Cell Distribution Width 15.5 % (11.8-14.3)
[2020-03-17] MEDS ORDERED: diphenhdrAMINE HCL 25 MG CAP PO PRN (09:15)
[2020-03-17 09:23] LABS: Potassium 5.4 mmol/L (3.5-5.1)
[2020-03-17 09:37] LABS: BUN/Creatinine Ratio 11.7; Calcium 8.6 mg/dL (8.5-10.1)
[2020-03-17] MEDS: FAMOTIDINE 20 MG TAB PO SCH (11:46)
[2020-03-17] MEDS: SODIUM ZIRCONIUM CYCL 10 GM PAK PO SCH (11:46)
[2020-03-17 12:48] VITALS: BP 205/98
[2020-03-17 12:55] VITALS: BP 205/98
--- NOTE | 2020-03-17 13:33 | NUR ---
RECEIVED PATIENT TO THE FLOOR FROM ER . PATIENT AWAKE ALERT AND ORIENTED. INSTRUCTED THE PATIENT ON THE PLAN OF CARE TO CALL IF ANYTHING IS NEEDED. WOUND CARE PICTURES TAKEN.
--- NOTE | 2020-03-17 13:33 | NUR ---
WOUND ADMIT PICTURE TAKEN.
[2020-03-17] MEDS: LABETALOL HCL 5 MG/ML 4ML SYRINGE IV PRN (14:30)
[2020-03-17] MEDS: BUMETANIDE 2.5mg/10ml (0.25 mg/ml) INJ IV SCH ×3 (14:30→21:51)
[2020-03-17] MEDS: cloNIDine HCL 0.1 MG TAB PO SCH ×2 (14:44→21:51)
[2020-03-17] MEDS: cloNIDine HCL 0.1 MG TAB PO PRN ×2 (16:00→18:34)
[2020-03-17 17:48] VITALS: BP 182/102
[2020-03-17] MEDS ORDERED: FINA5TAB4 PO (19:03)
[2020-03-17] MEDS ORDERED: NIFE90TA49 PO (19:03)
[2020-03-17] MEDS ORDERED: CHOL20007 OR (19:03)
[2020-03-17] MEDS ORDERED: FURO40TA4 PO (19:03)
[2020-03-17] MEDS ORDERED: ASPI-498 OR (19:03)
[2020-03-17] MEDS ORDERED: TERA10CA36 PO (19:03)
[2020-03-17] MEDS ORDERED: ATOR20TA50 PO (19:03)
[2020-03-17] MEDS ORDERED: CLOP75TA41 PO (19:03)
[2020-03-17] MEDS ORDERED: GLIP5TAB12 PO (19:03)
[2020-03-17] MEDS ORDERED: CARV3.1240 PO (19:03)
--- NOTE | 2020-03-17 19:38 | NUR ---
MEDICATIONS TAKEN DOWN TO PHARMACY
[2020-03-17 21:44] VITALS: BP 196/95
[2020-03-18] VITALS (8 sets, daily range): BP systolic 111–215; BP diastolic 64–98
[2020-03-18] MEDS: LABETALOL HCL 5 MG/ML 4ML SYRINGE IV PRN
[2020-03-18] MEDS: cloNIDine HCL 0.1 MG TAB PO PRN ×2 (01:10→03:28)
[2020-03-18] MEDS: BUMETANIDE 2.5mg/10ml (0.25 mg/ml) INJ IV SCH ×3 (05:28→22:26)
[2020-03-18] MEDS: cloNIDine HCL 0.1 MG TAB PO SCH ×3 (05:28→22:28)
[2020-03-18 06:34] LABS: Basophils # (auto) 0 10 ^3/uL (0-0.2); Hematocrit 20.9 % (41.0-53.0); Lymphocytes # (auto) 0.5 10 ^3/uL (0.4-5.4); Monocytes # (auto) 0.2 10 ^3/uL (0-1.3); Neutrophils # (auto) 1.2 10 ^3/uL (1.6-8.6); White Blood Cell 2.1 10^3/uL (4.4-10.8)
[2020-03-18 06:36] LABS: Basophils % (auto) 0.7 % (0.0-2.0); Eosinophils # (auto) 0.1 10 ^3/uL (0-0.8); Lymphocytes % (auto) 23.4 % (10.0-50.0); Monocytes % (auto) 10.4 % (0.0-12.0); Neutrophils % (auto) 58.5 % (37.0-80.0); Nucleated Red Blood Cells % 0.1 %; Platelet Count (auto) 37 10^3/uL (140-450); Red Blood Cells 2.16 10^6/uL (4.5-5.90); Red Cell Distribution Width 15.5 % (11.8-14.3)
[2020-03-18 06:52] LABS: Hemoglobin 6.9 g/dL (13.5-17.5)
[2020-03-18 06:54] LABS: Potassium 5.5 mmol/L (3.5-5.1)
[2020-03-18 07:02] LABS: Albumin 3.1 g/dL (3.4-5.0); BUN/Creatinine Ratio 11.6; Bilirubin, Total 0.6 mg/dL (0.2-1.0); Calcium 8.3 mg/dL (8.5-10.1); Total Protein 6.1 g/dL (6.4-8.2)
--- NOTE | 2020-03-18 07:20 | NUR ---
Opening Shift Note Assumed care of patient, awake and alert. No S/S of distress/SOB or pain. Instructed on POC and to call for assist PRN, will continue to monitor for changes Q1hr and PRN. Bed locked and in lowest position, call light within reach.
--- NOTE | 2020-03-18 07:32 | NUR ---
ATTEMPT TO REACH HOSPITALIST CALLED DR LOPEZ, NON LICENSED NUCLEAR EQUIPMENT OPERATOR HOSPITALIST, THROUGH PBX REGARDING CRITICAL HGB AND ELEVATED BP. NOT ANSWERING AT THIS TIME. WILL CONTINUE CARE.
--- NOTE | 2020-03-18 08:15 | NUR ---
SPOKE WITH MD SPOKE WITH DR HARPER REGARDING CRITICAL LAB VALUES. NEW ORDERS RECEIVED. WILL CARRY OUT AND CONTINUE CARE.
[2020-03-18] MEDS ORDERED: hydrALAZINE HCL 20 MG/ML VL IV PRN (08:30)
--- NOTE | 2020-03-18 09:27 | NUR ---
PAGED PAGED DR MATHEW REGARDING CRITICAL LAB VALUES. AWAITING CALL BACK.
--- NOTE | 2020-03-18 10:16 | NUR ---
RECEIVED CALL FROM SPOKE WITH DR HART. PER DR HART HE WILL BE IN SHORTLY TO PUT IN DIALYSIS ORDERS. WILL CONTINUE CARE.
[2020-03-18] MEDS ORDERED: amLODIPine BESYLATE 5 MG TAB PO ONE (10:30)
[2020-03-18] MEDS ORDERED: BENAZEPRIL HCL 10 MG TAB PO ONE (10:30)
--- NOTE | 2020-03-18 10:37 | NUR ---
DOCTOR AT BEDSIDE DR. HARPER AT BEDSIDE, UPDATED ON POC. NEW ORDERS RECEIVED WILL CARRY OUT.
[2020-03-18] MEDS: CARVEDILOL 3.125 MG TAB PO SCH ×2 (10:40→22:28)
[2020-03-18] MEDS: hydrALAZINE HCL 25 MG TAB PO SCH ×2 (10:40→22:27)
[2020-03-18] MEDS: SODIUM ZIRCONIUM CYCL 10 GM PAK PO SCH (10:41)
[2020-03-18] MEDS ORDERED: SODIUM CHL 0.9% 1000 ML BAG XX ONE (10:45)
--- NOTE | 2020-03-18 10:54 | NUR ---
DOCTOR AT BEDSIDE DR. HART AT BEDSIDE, UPDATED ON POC.
--- NOTE | 2020-03-18 15:00 | NUR ---
PRBC 1 UNIT OF PRBC GIVEN DURING DIALYSIS BY DIALYSIS NURSE. PATIENT TOLERATED WELL. WILL CONTINUE CARE.
--- NOTE | 2020-03-18 16:30 | NUR ---
DIALYSIS TOTAL OFF: 2.7L ENDING BLOOD PRESSURE: 209/98 PATIENT'S BLOOD PRESSURE PROVED TO BE LABILE DURING HD, FLUCTUATING BETWEEN SYSTOLIC 170'S AND 90'S. PATIENT FEELING NAUSEATED AT END OF HD AND VOMITED BRIGHT YELLOW EMESIS. MD HARPER PAGED TO NOTIFY. AWAITING CALL BACK, WILL CONTINUE CARE.
--- NOTE | 2020-03-18 19:45 | NUR ---
Opening Shift Note Assumed care of patient, awake and alert. Patient eating in bed. No S/S of distress/SOB or pain. Safety measures maintained by keeping the bed locked in lowest position, 2 side rails up, personal items and call light within reach. Personal cane at bedside. Instructed on POC and to call for assist PRN, will continue to monitor for changes Q1hr and PRN.
[2020-03-18] MEDS ORDERED: EPOETIN ALFA 4,000 UNIT/ML VL SC ONE (21:00)
[2020-03-18] MEDS: TERAZOSIN HCL 5 MG CAP PO SCH (22:27)
[2020-03-19 05:00] VITALS: BP 162/80
[2020-03-19] MEDS: cloNIDine HCL 0.1 MG TAB PO SCH ×3 (05:35→22:00)
[2020-03-19] MEDS: BUMETANIDE 2.5mg/10ml (0.25 mg/ml) INJ IV SCH ×3 (05:35→22:00)
[2020-03-19 07:22] LABS: Basophils # (auto) 0 10 ^3/uL (0-0.2); Eosinophils # (auto) 0.1 10 ^3/uL (0-0.8); Hematocrit 23.1 % (41.0-53.0); Hemoglobin 7.9 g/dL (13.5-17.5); Lymphocytes # (auto) 0.4 10 ^3/uL (0.4-5.4); Mean Corpuscular Hemoglobin 31.8 pg (28.0-32.0); Mean Corpuscular Hgb Conc. 34.2 g/dL (32.0-36.0); Monocytes # (auto) 0.3 10 ^3/uL (0-1.3); Neutrophils # (auto) 1.7 10 ^3/uL (1.6-8.6); Nucleated Red Blood Cells % 0.2 %; Platelet Count (auto) 36 10^3/uL (140-450); White Blood Cell 2.6 10^3/uL (4.4-10.8)
[2020-03-19 07:24] LABS: Basophils % (auto) 0.4 % (0.0-2.0); Monocytes % (auto) 13.1 % (0.0-12.0); Neutrophils % (auto) 65.5 % (37.0-80.0); Red Blood Cells 2.48 10^6/uL (4.5-5.90)
[2020-03-19 07:44] LABS: Potassium 4.4 mmol/L (3.5-5.1)
[2020-03-19 08:01] LABS: Bilirubin, Total 0.6 mg/dL (0.2-1.0); Calcium 7.4 mg/dL (8.5-10.1)
[2020-03-19 08:30] VITALS: BP 184/82
[2020-03-19 09:00] VITALS: BP 184/82
[2020-03-19] MEDS: hydrALAZINE HCL 25 MG TAB PO SCH ×2 (09:11→22:00)
[2020-03-19] MEDS: BENAZEPRIL HCL 10 MG TAB PO SCH (09:11)
[2020-03-19] MEDS: FAMOTIDINE 20 MG TAB PO SCH (09:11)
[2020-03-19] MEDS: amLODIPine BESYLATE 5 MG TAB PO SCH (09:12)
[2020-03-19] MEDS: CARVEDILOL 3.125 MG TAB PO SCH ×2 (09:14→22:00)
[2020-03-19] MEDS: SODIUM ZIRCONIUM CYCL 10 GM PAK PO SCH (09:15)
--- NOTE | 2020-03-19 09:15 | NUR ---
Scheduled medications given per order. Patient denies any pain at this time. Patient stable.
--- NOTE | 2020-03-19 10:00 | NUR ---
Patient resting comfortably in bed with Dr. Keene at bedside. Patient stable.
[2020-03-19 10:41] LABS: Bilirubin, Direct 0.2 mg/dL (0-0.2)
[2020-03-19 10:44] LABS: Bilirubin, Total 0.6 mg/dL (0.2-1.0); Total Protein 5.6 g/dL (6.4-8.2)
--- NOTE | 2020-03-19 11:12 | NUR ---
Assessment Patient is an 84-year-old male who is alert and oriented. Prior to admission patient lived home alone and functioned independently. Patient informed me he can care for his own ADLs. Per patient he will return home to his prior living arrangements post discharge and his daughter Saranya will transport him home. Patient informed me his daughter Saranya will be staying with him for a few days. Patient informed me he has a cane and does not need any other equipment. Patient informed me he goes to [facility] to see his doctor however, does not remember his name. Patient informed me he is on service with [facility] and would like to resume service with agency upon . Patient is on dialysis with [facility] on , . Informed patient he has the right to participate in all discharge planning. Patient verbalized understanding. Patient will need a resumption order for home health service upon . Addendum: 03/19/20 at 1120 by CHRISTY MARLOW Amended: Links added.
--- NOTE | 2020-03-19 11:20 | NUR ---
Patient resting comfortably in bed with Dr. Love at bedside. Patient stable.
[2020-03-19] MEDS ORDERED: glipiZIDE 5 MG TAB PO ONE (11:30)
[2020-03-19 13:00] VITALS: BP 158/80
--- NOTE | 2020-03-19 14:15 | NUR ---
Checked blood sugar: 225 mg/dl - medication given. Patient resting comfortably in bed at this time. Stable.
--- NOTE | 2020-03-19 16:30 | NUR ---
Patient ambulated with cane to bathroom and back to bed. Patient stable at this time.
[2020-03-19 17:00] VITALS: BP 149/69
[2020-03-19] MEDS: glipiZIDE 5 MG TAB PO SCH (18:17)
--- NOTE | 2020-03-19 18:20 | NUR ---
Checked blood sugar: 213 mg/dl - medication given per order. Patient resting quietly in bed with no complaint of pain or discomfort. Patient stable throughout shift.
--- NOTE | 2020-03-19 19:30 | NUR ---
Opening Shift Note Assumed care of patient, awake and alert. Patient sitting up in bed. No S/S of distress/SOB or pain. Safety measures maintained by keeping the bed locked in lowest position, 2 side rails up, personal items and call light within reach. Cane at bedside. Instructed on POC and to call for assist PRN, will continue to monitor for changes Q1hr and PRN.
[2020-03-19 21:40] VITALS: BP 138/70
[2020-03-19] MEDS ORDERED: LATANOPROST 0.005 % OPTH(EYE) SOL 2.5ML EACHEYE SCH (22:00)
[2020-03-19] MEDS: TERAZOSIN HCL 5 MG CAP PO SCH (22:00)
[2020-03-19] MEDS: BRIMONIDINE 0.2% OPTH Soln 5ml EACHEYE SCH (22:00)
[2020-03-19] MEDS: TIMOLOL MAL 0.5% OPTH(EYE) SOL 5ML EACHEYE SCH (22:00)
[2020-03-19] MEDS: [UNRECOGNIZED DRUG - OTHER] OP SCH (22:00)
[2020-03-19] MEDS: CARBOXYMETHYLCELLULOSE OP SCH (22:00)
[2020-03-20 05:00] VITALS: BP 147/73
[2020-03-20 06:47] LABS: Basophils # (auto) 0 10 ^3/uL (0-0.2); Eosinophils # (auto) 0.1 10 ^3/uL (0-0.8); Hemoglobin 7.3 g/dL (13.5-17.5); Lymphocytes # (auto) 0.5 10 ^3/uL (0.4-5.4); Monocytes # (auto) 0.3 10 ^3/uL (0-1.3); Monocytes % (auto) 12.8 % (0.0-12.0); Neutrophils # (auto) 1.4 10 ^3/uL (1.6-8.6)
[2020-03-20 06:50] LABS: Basophils % (auto) 0.6 % (0.0-2.0); Eosinophils % (auto) 5.7 % (0.0-7.0); Hematocrit 21.6 % (41.0-53.0); Lymphocytes % (auto) 20.8 % (10.0-50.0); Mean Corpuscular Hemoglobin 31.3 pg (28.0-32.0); Mean Corpuscular Hgb Conc. 33.7 g/dL (32.0-36.0); Mean Corpuscular Volume 92.7 fL (80.0-100.0); Neutrophils % (auto) 60.1 % (37.0-80.0); Nucleated Red Blood Cells % 0.1 %; Platelet Count (auto) 36 10^3/uL (140-450); Red Blood Cells 2.33 10^6/uL (4.5-5.90); Red Cell Distribution Width 16.9 % (11.8-14.3); White Blood Cell 2.4 10^3/uL (4.4-10.8)
[2020-03-20] MEDS ORDERED: SODIUM CHL 0.9% 1000 ML BAG XX ONE (07:00)
[2020-03-20 07:01] LABS: BUN/Creatinine Ratio 9.6; Calcium 7.2 mg/dL (8.5-10.1); Potassium 3.7 mmol/L (3.5-5.1)
[2020-03-20] MEDS: BUMETANIDE 2.5mg/10ml (0.25 mg/ml) INJ IV SCH ×2 (07:05→15:42)
[2020-03-20] MEDS: cloNIDine HCL 0.1 MG TAB PO SCH ×2 (07:05→15:42)
[2020-03-20] MEDS: glipiZIDE 5 MG TAB PO SCH ×2 (07:06→18:12)
[2020-03-20 08:05] VITALS: BP 163/87
--- NOTE | 2020-03-20 08:05 | NUR ---
Patient resting comfortably in bed with dialysis nurse at bedside to start dialysis. Patient denies any pain at this time. Patient stable.
[2020-03-20 09:00] VITALS: BP 162/77
[2020-03-20] MEDS: [UNRECOGNIZED DRUG - OTHER] OP SCH (10:00)
[2020-03-20] MEDS: amLODIPine BESYLATE 5 MG TAB PO SCH (10:00)
[2020-03-20] MEDS: hydrALAZINE HCL 25 MG TAB PO SCH (10:00)
[2020-03-20] MEDS: CARBOXYMETHYLCELLULOSE OP SCH (10:00)
[2020-03-20] MEDS: CARVEDILOL 3.125 MG TAB PO SCH (10:00)
[2020-03-20] MEDS: BENAZEPRIL HCL 10 MG TAB PO SCH (10:00)
[2020-03-20] MEDS: SODIUM ZIRCONIUM CYCL 10 GM PAK PO SCH (10:15)
--- NOTE | 2020-03-20 10:17 | NUR ---
Scheduled medication given per order. Patient resting comfortably in bed with dialysis in progress and dialysis nurse at bedside. Patient denies any pain at this time. Patient stable.
--- NOTE | 2020-03-20 11:15 | NUR ---
Dialysis complete: 1 liter removed; BP 154/7, HR 75. Patient ambulated to bathroom and back to bed. Patient stable at this time.
--- NOTE | 2020-03-20 12:25 | NUR ---
Patient resting comfortably in bed with no complaint of pain at this time. Patient stable.
[2020-03-20 12:42] VITALS: BP 154/74
--- NOTE | 2020-03-20 12:59 | NUR ---
Nutrition Assessment Notes Please refer to link for full assessment notes. Est Energy needs: 8578-1164 kcals (23-25 kcal/kgBW) Est Protein needs: 101-110 gms/day (1.1-1.2 gm/kgBW) Will continue to monitor and reassess prn. Addendum: 03/20/20 at [address] Amended: Links added.
[2020-03-20 13:20] VITALS: BP 154/74
[2020-03-20] MEDS: TIMOLOL MAL 0.5% OPTH(EYE) SOL 5ML EACHEYE SCH (15:41)
[2020-03-20] MEDS: BRIMONIDINE 0.2% OPTH Soln 5ml EACHEYE SCH (15:41)
--- NOTE | 2020-03-20 15:48 | NUR ---
Scheduled medications given per order. Patient stable with NA at bedside as well: 192/80. Patient stable.
--- NOTE | 2020-03-20 16:26 | NUR ---
Regarding social service consult to resume home health with [facility]. Faxed clinical information to agency. Per Hilaria with agency order has been received and they will see patient within 24-48hrs upon d/c day.
--- NOTE | 2020-03-20 16:45 | NUR ---
Patient resting comfortably in bed with no complaint of pain at this time. Changed dressing on dry scab on right rodriguez. Patient stable at this time.
[2020-03-20 17:02] VITALS: BP 190/80
--- NOTE | 2020-03-20 17:20 | NUR ---
Paged doctor regarding elevated blood pressure: SBP 191. Received call back from Meghan Short. New order given and will be carried out; given labetalol 10mg IVP once, recheck BP 30 mins after administering med, and discharge home if SPB < 170.
[2020-03-20] MEDS ORDERED: LABETALOL HCL 5 MG/ML 4ML SYRINGE IV ONE (17:30)
--- NOTE | 2020-03-20 18:13 | NUR ---
Checked blood sugar: 161 mg/dl. Scheduled medication given. Antihypertensive IVP medication given as well.
--- NOTE | 2020-03-20 18:45 | NUR ---
Rechecked blood pressure: 159/74, hr 67. Will discharge to home.
[2020-03-20] MEDS ORDERED: EPOETIN ALFA 10,000 UNIT/1 ML VIAL SC ONE (21:00)
[2020-03-22 13:00] LABS: Hepatitis B Surface Antigen Negative (Negative); Hepatitis C Antibody Negative (Negative)
== END 2020-03-20 19:40 | disposition home or self-care (01) | DRG 291 ==
LOC: ER 13:18 → TELE 13:19 → TELE-WESTW 03-17 12:24
PROVIDERS: ADMIT Nurse Practitioner Acute Care; ATTEND Family Medicine
PROC: 30233N1 Transfusion of Nonautologous Red Blood Cells into Peripheral Vein, Percutaneous Approach (ICD-10-PCS; principal; 2020-03-18)
PROC: 5A1D70Z Performance of Urinary Filtration, Intermittent, Less than 6 Hours Per Day (ICD-10-PCS; 2020-03-18)
PROC: 5A1D70Z Performance of Urinary Filtration, Intermittent, Less than 6 Hours Per Day (ICD-10-PCS; 2020-03-20)
DX: I13.2 Hypertensive heart and chronic kidney disease with heart failure and with stage 5 chronic kidney disease, or end stage renal disease (principal); N18.6 End stage renal disease; D61.818 Other pancytopenia; E87.5 Hyperkalemia; I50.9 Heart failure, unspecified; E78.5 Hyperlipidemia, unspecified; E11.21 Type 2 diabetes mellitus with diabetic nephropathy; H40.9 Unspecified glaucoma; E11.22 Type 2 diabetes mellitus with diabetic chronic kidney disease; D63.1 Anemia in chronic kidney disease; E11.40 Type 2 diabetes mellitus with diabetic neuropathy, unspecified; I35.0 Nonrheumatic aortic (valve) stenosis; J44.9 Chronic obstructive pulmonary disease, unspecified; N40.0 Benign prostatic hyperplasia without lower urinary tract symptoms; Z88.8 Allergy status to other drugs, medicaments and biological substances; Z99.2 Dependence on renal dialysis; Z79.84 Long term (current) use of oral hypoglycemic drugs; Z79.899 Other long term (current) drug therapy; Z82.49 Family history of ischemic heart disease and other diseases of the circulatory system; Z83.3 Family history of diabetes mellitus; Z95.2 Presence of prosthetic heart valve
CPT/HCPCS: 36415; 71045; 80048; 80053; 80076; 81001; 82728; 82962; 83036; 83540; 83550; 83880; 84100; 84132; 84484; 84550; 85025; 86803; 86850; 86900; 86901; 86920; 87081; 87340; 90935; 93970; 96374; 96375; G0378; J0610; J0885; J1642; J1815; J3490

== ENCOUNTER 2020-04-22 14:41 | Inpatient (IN) | payer MEDICARE, OTHER ==
[~2020-04-22] VITALS: Ht 182.9 cm; Wt 87.0 kg
[~2020-04-22 14:41] MED LIST changes: +ASPI-498 OR; +CHOL20007 OR; +CLOP75TA41 PO; +GLIP5TAB12 PO; +NIFE90TA49 PO; -TIMO0.5S67 EACHEYE; +TIMO0.5S67 LEFTEYE
[2020-04-22 15:47] LABS: Basophils # (auto) 0 10 ^3/uL (0-0.2); Eosinophils # (auto) 0 10 ^3/uL (0-0.8); Eosinophils % (auto) 0.1 % (0.0-7.0); Hematocrit 19.4 % (41.0-53.0); Mean Corpuscular Hemoglobin 33.2 pg (28.0-32.0); Monocytes # (auto) 0.5 10 ^3/uL (0-1.3); Nucleated Red Blood Cells % 0.1 %; Red Cell Distribution Width 18.8 % (11.8-14.3)
[2020-04-22 15:50] LABS: Basophils % (auto) 0.3 % (0.0-2.0); Lymphocytes # (auto) 0.4 10 ^3/uL (0.4-5.4); Mean Corpuscular Hgb Conc. 34.4 g/dL (32.0-36.0); Mean Corpuscular Volume 96.5 fL (80.0-100.0); Monocytes % (auto) 6.7 % (0.0-12.0); Neutrophils # (auto) 6.4 10 ^3/uL (1.6-8.6); Neutrophils % (auto) 87.9 % (37.0-80.0); Platelet Count (auto) 111 10^3/uL (140-450); Red Blood Cells 2.01 10^6/uL (4.5-5.90); White Blood Cell 7.2 10^3/uL (4.4-10.8)
[2020-04-22 16:05] LABS: Calcium 8.6 mg/dL (8.5-10.1); Potassium 4.5 mmol/L (3.5-5.1)
[2020-04-22 16:09] LABS: INR 1.18 (0.9-1.15); Partial Thromboplastin Time 31.8 sec (23.0-31.2)
[2020-04-22 16:13] LABS: Albumin 3.1 g/dL (3.4-5.0); BUN/Creatinine Ratio 8.3; Bilirubin, Total 0.8 mg/dL (0.2-1.0)
[2020-04-22 16:51] LABS: Hemoglobin 6.7 g/dL (13.5-17.5)
[2020-04-22] MEDS ORDERED: AZITHROMYCIN 500MG/ 250ML 250 ML IV ONE (17:45)
[2020-04-22] MEDS ORDERED: cefTRIAXone 1GM/50ML D5W 50 ML IV ONE (17:45)
[2020-04-22 20:48] LABS: CRP High Sensitivity 5.15 mg/dL (< 0.3)
[2020-04-22] MEDS ORDERED: ACETAMINOPHEN 325 MG TAB PO PRN (21:15)
[2020-04-22] MEDS ORDERED: TEMAZEPAM 15 MG CAP PO PRN (21:15)
[2020-04-22] MEDS ORDERED: DEXTROSE (50%) 50ML SYRG IV PRN (21:15)
[2020-04-22] MEDS ORDERED: MORPHINE SULF INJ 2 MG/ML SYRINGE 1ML IV PRN (21:15)
[2020-04-22] MEDS ORDERED: ONDANSETRON HCL 4 MG/2 ML VIAL IV PRN (21:15)
[2020-04-22] MEDS ORDERED: NITROGLYCERIN 0.4 MG SL TAB SL PRN (21:15)
[2020-04-22] MEDS: hydrALAZINE HCL 25 MG TAB PO SCH (22:00)
[2020-04-22] MEDS: ATORVASTATIN 20 MG TAB PO SCH (22:00)
[2020-04-22] MEDS: DOXYCYCLINE 100MG/250ML 250 ML IV SCH (22:00)
[2020-04-22] MEDS: ACCU-CHEK COMFORT CURVE STRIP VI SCH (22:00)
[2020-04-22] MEDS: CARVEDILOL 3.125 MG TAB PO SCH (22:00)
[2020-04-22] MEDS: InsuLIN REG 1unit/0.01ml Soln (100units/ml) SC SCH (22:00)
[2020-04-22 22:30] LABS: Magnesium 2.1 mg/dL (1.6-2.6)
[2020-04-23] VITALS (15 sets, daily range): BP systolic 115–140; BP diastolic 57–79
[2020-04-23] MEDS: FUROSEMIDE 40 MG TAB PO SCH ×2 (06:50→17:43)
[2020-04-23] MEDS: InsuLIN REG 1unit/0.01ml Soln (100units/ml) SC SCH ×4 (07:00→21:42)
[2020-04-23] MEDS: ACCU-CHEK COMFORT CURVE STRIP VI SCH ×4 (07:21→21:35)
[2020-04-23] MEDS ORDERED: PANTOPRAZOLE 40 MG TAB PO SCH (10:00)
[2020-04-23 10:41] LABS: Potassium 4.8 mmol/L (3.5-5.1)
[2020-04-23] MEDS: DOXYCYCLINE 100MG/250ML 250 ML IV SCH ×2 (10:46→21:57)
[2020-04-23] MEDS: DexAMETHasone SOD PHOS 10MG/1ML VIAL INJ IV SCH (10:46)
[2020-04-23] MEDS: ZINC SULFATE 220mg CAP or TAB PO SCH (10:46)
[2020-04-23] MEDS: hydrALAZINE HCL 25 MG TAB PO SCH ×2 (10:47→21:35)
[2020-04-23] MEDS: CLOPIDOGREL BISULFATE 75 MG TAB PO SCH (10:48)
[2020-04-23] MEDS: CARVEDILOL 3.125 MG TAB PO SCH ×2 (10:48→21:35)
[2020-04-23 10:49] LABS: Basophils # (auto) 0 10 ^3/uL (0-0.2); Basophils % (auto) 0.4 % (0.0-2.0); Eosinophils # (auto) 0 10 ^3/uL (0-0.8); Eosinophils % (auto) 0.3 % (0.0-7.0); Monocytes # (auto) 0.5 10 ^3/uL (0-1.3)
[2020-04-23] MEDS: ENOXAPARIN SOD 40 MG/0.4 ML SYRINGE SC SCH ×2 (10:49→13:01)
[2020-04-23] MEDS: CHOLECALCIFEROL (VITD3) 2,000 UNIT CAP PO SCH (10:49)
[2020-04-23] MEDS: ASCORBIC ACID 1,000 MG TAB PO SCH (10:49)
[2020-04-23] MEDS: PANTOPRAZOLE 40 MG TAB PO SCH (10:49)
[2020-04-23 10:50] LABS: Hematocrit 22.6 % (41.0-53.0); Hemoglobin 7.9 g/dL (13.5-17.5); Lymphocytes # (auto) 0.4 10 ^3/uL (0.4-5.4); Mean Corpuscular Hemoglobin 32.9 pg (28.0-32.0); Mean Corpuscular Hgb Conc. 34.9 g/dL (32.0-36.0); Mean Corpuscular Volume 94.2 fL (80.0-100.0); Monocytes % (auto) 9.5 % (0.0-12.0); Neutrophils # (auto) 4.4 10 ^3/uL (1.6-8.6); Neutrophils % (auto) 81.8 % (37.0-80.0); Nucleated Red Blood Cells % 0.1 %; Platelet Count (auto) 106 10^3/uL (140-450); Red Cell Distribution Width 17.6 % (11.8-14.3); White Blood Cell 5.4 10^3/uL (4.4-10.8)
[2020-04-23 11:09] LABS: Albumin 2.8 g/dL (3.4-5.0); BUN/Creatinine Ratio 8.5; Bilirubin, Total 0.6 mg/dL (0.2-1.0); Calcium 7.9 mg/dL (8.5-10.1); Total Protein 6.7 g/dL (6.4-8.2)
[2020-04-23] MEDS ORDERED: NIFE90TA49 PO (11:32)
[2020-04-23] MEDS ORDERED: CAR125T PO (11:32)
[2020-04-23] MEDS ORDERED: B-COMPLEX W/ C & FOLIC ACID(NEPHROVITE TAB) PO ONE (11:45)
[2020-04-23] MEDS: ALBUTEROL SULF HFA 90MCG INH 200DOSE IN PRN (20:00)
[2020-04-23] MEDS: TERAZOSIN HCL 5 MG CAP PO SCH (21:35)
[2020-04-23] MEDS: ATORVASTATIN 20 MG TAB PO SCH (21:35)
[2020-04-24] VITALS: BP 134/71
[2020-04-24] MEDS: FUROSEMIDE 40 MG TAB PO SCH ×2 (05:52→17:41)
[2020-04-24] MEDS: ACCU-CHEK COMFORT CURVE STRIP VI SCH ×4 (06:26→22:00)
[2020-04-24] MEDS: InsuLIN REG 1unit/0.01ml Soln (100units/ml) SC SCH ×4 (06:27→22:47)
[2020-04-24] MEDS ORDERED: SODIUM CHL 0.9% 1000 ML BAG XX ONE (07:00)
[2020-04-24 07:08] LABS: Basophils # (auto) 0 10 ^3/uL (0-0.2); Eosinophils # (auto) 0 10 ^3/uL (0-0.8); Hematocrit 21.9 % (41.0-53.0); Hemoglobin 7.7 g/dL (13.5-17.5); Lymphocytes # (auto) 0.3 10 ^3/uL (0.4-5.4); Mean Corpuscular Hgb Conc. 35.2 g/dL (32.0-36.0); Monocytes # (auto) 0.4 10 ^3/uL (0-1.3); Monocytes % (auto) 8.1 % (0.0-12.0); Neutrophils # (auto) 4.6 10 ^3/uL (1.6-8.6); Nucleated Red Blood Cells % 0.3 %; Red Blood Cells 2.32 10^6/uL (4.5-5.90); White Blood Cell 5.4 10^3/uL (4.4-10.8)
[2020-04-24 07:10] LABS: Basophils % (auto) 0.4 % (0.0-2.0); Lymphocytes % (auto) 5.8 % (10.0-50.0); Mean Corpuscular Hemoglobin 33.1 pg (28.0-32.0); Mean Corpuscular Volume 94.1 fL (80.0-100.0); Neutrophils % (auto) 85.7 % (37.0-80.0); Platelet Count (auto) 106 10^3/uL (140-450); Red Cell Distribution Width 17.4 % (11.8-14.3)
[2020-04-24 07:27] LABS: Potassium 4.5 mmol/L (3.5-5.1)
[2020-04-24 07:37] LABS: BUN/Creatinine Ratio 9.3; Calcium 8.2 mg/dL (8.5-10.1)
[2020-04-24 08:00] VITALS: BP 114/63
[2020-04-24] MEDS: ALBUTEROL SULF HFA 90MCG INH 200DOSE IN PRN (08:03)
[2020-04-24] MEDS: DOXYCYCLINE 100MG/250ML 250 ML IV SCH ×2 (09:44→22:43)
[2020-04-24] MEDS: CLOPIDOGREL BISULFATE 75 MG TAB PO SCH (09:45)
[2020-04-24] MEDS: CHOLECALCIFEROL (VITD3) 2,000 UNIT CAP PO SCH (09:45)
[2020-04-24] MEDS: PANTOPRAZOLE 40 MG TAB PO SCH (09:45)
[2020-04-24] MEDS: FINASTERIDE 5 MG TAB PO SCH (09:45)
[2020-04-24] MEDS: DexAMETHasone SOD PHOS 10MG/1ML VIAL INJ IV SCH (09:45)
[2020-04-24] MEDS: B-COMPLEX W/ C & FOLIC ACID(NEPHROVITE TAB) PO SCH (09:45)
[2020-04-24] MEDS: ZINC SULFATE 220mg CAP or TAB PO SCH (09:45)
[2020-04-24] MEDS: ENOXAPARIN SOD 40 MG/0.4 ML SYRINGE SC SCH (09:46)
[2020-04-24] MEDS: ASCORBIC ACID 1,000 MG TAB PO SCH (09:46)
[2020-04-24] MEDS: CARVEDILOL 3.125 MG TAB PO SCH ×2 (10:00→22:44)
[2020-04-24] MEDS: hydrALAZINE HCL 25 MG TAB PO SCH ×2 (10:00→22:44)
[2020-04-24 16:00] VITALS: BP 137/72
[2020-04-24 16:35] VITALS: BP 134/71
[2020-04-24] MEDS ORDERED: EPOETIN ALFA 4,000 UNIT/ML VL SC ONE (21:00)
[2020-04-24] MEDS: TERAZOSIN HCL 5 MG CAP PO SCH (22:45)
[2020-04-24] MEDS: ATORVASTATIN 20 MG TAB PO SCH (22:45)
[2020-04-25] VITALS: BP 135/87
[2020-04-25] MEDS: FUROSEMIDE 40 MG TAB PO SCH (06:49)
[2020-04-25] MEDS: InsuLIN REG 1unit/0.01ml Soln (100units/ml) SC SCH ×3 (06:50→17:00)
[2020-04-25] MEDS: ACCU-CHEK COMFORT CURVE STRIP VI SCH ×3 (06:50→17:00)
[2020-04-25] MEDS: cloNIDine HCL 0.1 MG TAB PO PRN ×2 (07:03→16:45)
[2020-04-25] MEDS: ALBUTEROL SULF HFA 90MCG INH 200DOSE IN PRN (07:52)
[2020-04-25 08:05] VITALS: BP 191/83
[2020-04-25] MEDS: hydrALAZINE HCL 25 MG TAB PO SCH (08:14)
[2020-04-25] MEDS: CARVEDILOL 3.125 MG TAB PO SCH (08:14)
[2020-04-25] MEDS: DOXYCYCLINE 100MG/250ML 250 ML IV SCH (10:16)
[2020-04-25] MEDS: DexAMETHasone SOD PHOS 10MG/1ML VIAL INJ IV SCH (10:16)
[2020-04-25] MEDS: CLOPIDOGREL BISULFATE 75 MG TAB PO SCH (10:16)
[2020-04-25] MEDS: ZINC SULFATE 220mg CAP or TAB PO SCH (10:16)
[2020-04-25] MEDS: ASCORBIC ACID 1,000 MG TAB PO SCH (10:17)
[2020-04-25] MEDS: CHOLECALCIFEROL (VITD3) 2,000 UNIT CAP PO SCH (10:17)
[2020-04-25] MEDS: FINASTERIDE 5 MG TAB PO SCH (10:17)
[2020-04-25] MEDS: B-COMPLEX W/ C & FOLIC ACID(NEPHROVITE TAB) PO SCH (10:17)
[2020-04-25] MEDS: PANTOPRAZOLE 40 MG TAB PO SCH (10:17)
[2020-04-25] MEDS: ENOXAPARIN SOD 40 MG/0.4 ML SYRINGE SC SCH (10:18)
[2020-04-25 16:00] VITALS: BP 172/82
== END 2020-04-25 17:50 | disposition home or self-care (01) | DRG 177 ==
LOC: EDBD 14:41 → ER 14:44 → OVERFLOW 14:45 → TELE-E-ADS 04-23 05:45 → TELE-EAST 04-25 15:25
PROVIDERS: ADMIT Nurse Practitioner; ATTEND Internal Medicine
PROC: 30230N1 Transfusion of Nonautologous Red Blood Cells into Peripheral Vein, Open Approach (ICD-10-PCS; principal; 2020-04-23)
PROC: 5A1D70Z Performance of Urinary Filtration, Intermittent, Less than 6 Hours Per Day (ICD-10-PCS; 2020-04-23)
DX: U07.1 COVID-19 (principal); N18.6 End stage renal disease; I50.43 Acute on chronic combined systolic (congestive) and diastolic (congestive) heart failure; J12.82 Pneumonia due to coronavirus disease 2019; E44.1 Mild protein-calorie malnutrition; E87.1 Hypo-osmolality and hyponatremia; I13.2 Hypertensive heart and chronic kidney disease with heart failure and with stage 5 chronic kidney disease, or end stage renal disease; N40.0 Benign prostatic hyperplasia without lower urinary tract symptoms; D63.1 Anemia in chronic kidney disease; E11.22 Type 2 diabetes mellitus with diabetic chronic kidney disease; E78.5 Hyperlipidemia, unspecified; F03.90 Unspecified dementia, unspecified severity, without behavioral disturbance, psychotic disturbance, mood disturbance, and anxiety; Z79.899 Other long term (current) drug therapy; Z80.3 Family history of malignant neoplasm of breast; Z82.49 Family history of ischemic heart disease and other diseases of the circulatory system; Z99.2 Dependence on renal dialysis; Z83.3 Family history of diabetes mellitus; Z95.2 Presence of prosthetic heart valve; Z88.8 Allergy status to other drugs, medicaments and biological substances
CPT/HCPCS: 36415; 70450; 71045; 80048; 80053; 82728; 82962; 83615; 83735; 83880; 84484; 85025; 85610; 85730; 86141; 86850; 86900; 86901; 86920; 87426; 90935; 94640; 97110; 97116; 97163; 97530; G0378; J0696; J1100; J1815; J3490